=== PATIENT | male | born 1945 | race Caucasian/White ===

== ENCOUNTER 2018-07-14 22:25 | Inpatient (IN) | payer BC, OTHER ==
--- NOTE | 2018-07-14 23:33 | PDOC ---
History of Present Illness - General History Source: Patient Exam Limitations: No Limitations - History of Present Illness Initial Comments: 07/14/18 23:58 The patient is a 72 year old male, with a significant past medical history of hypertension and hypothyroidism, who presents to the emergency department with one month of weakness and fatigue and new onset of blood in his urine with associated suprapubic pain. He states he went to his PCP for a physical about 6 days ago for his fatigue, had blood work and a normal EKG. The patient states he feels he has been urinating more frequently over the past few months, however , states he was passing blood with clots today which was followed by a decrease in urinary output now. He denies experiencing these symptoms in the past. The patient denies chest pain, shortness of breath, headache and dizziness. The patient denies fever, chills, nausea, vomit, diarrhea and constipation. The patient denies dysuria. Allergies: NKDA Surgical Hx: Abdominal lipoma removal PCP - Dr. Megan Rios <Michelle Johnson - Last Filed: 07/14/18 23:58> <Valentine Iglesias - Last Filed: 07/21/18 21:33> - General Chief Complaint: Urinary Problem Stated Complaint: UNABLE TO URINATE,BLEEDING Time Seen by Provider: 07/14/18 23:27 Past History <Michelle Johnson - Last Filed: 07/14/18 23:58> - Past Medical History COPD: No HTN: Yes Thyroid Disease: Yes - Suicide/Smoking/Psychosocial Hx Smoking History: Never smoked <Valentine Iglesias - Last Filed: 07/21/18 21:33> - Past Medical History Allergies/Adverse Reactions: Allergies Allergy/AdvReac Type Severity Reaction Status Date / Time No Known Allergies Allergy Verified 07/14/18 22:29 Home Medications: Ambulatory Orders Levothyroxine [Synthroid -] 125 mg PO DAILY 07/16/18 Losartan-Hctz 100-25 mg Tab 100 mg PO DAILY 07/16/18 Tamsulosin HCl [Flomax -] 0.8 mg PO DAILY@0830 #60 cap.er.24h 07/21/18 Review of Systems - Review of Systems Able to Perform ROS?: Yes Comments:: 07/14/18 23:59 CONSTITUTIONAL: (+) generalized weakness, malaise, Absent: fever, chills, diaphoresis,loss of appetite HEENT: Absent: rhinorrhea, nasal congestion, throat pain, throat swelling, difficulty swallowing, mouth swelling, ear pain, eye pain, visual Changes CARDIOVASCULAR: Absent: chest pain, syncope, palpitations, irregular heart rate, lightheadedness , peripheral edema RESPIRATORY: Absent: cough, shortness of breath, dyspnea with exertion, orthopnea, wheezing, stridor, hemoptysis GASTROINTESTINAL: Absent: abdominal pain, abdominal distension, nausea, vomiting, diarrhea, constipation, melena, hematochezia GENITOURINARY: (+) Suprapubic pain, hematuria, frequency, Absent: dysuria,urgency, hesitancy, flank pain, genital pain MUSCULOSKELETAL: Absent: myalgia, arthralgia, joint swelling SKIN: Absent: rash, itching, pallor HEMATOLOGIC/IMMUNOLOGIC: Absent: easy bruising, lymphadenopathy, frequent infections ENDOCRINE: Absent: unexplained weight gain, unexplained weight loss, heat intolerance, cold intolerance NEUROLOGIC: Absent: headache, focal weakness or paresthesias, dizziness, unsteady gait, seizure, mental status changes, bladder or bowel incontinence PSYCHIATRIC: Absent: anxiety, depression, suicidal or homicidal ideation, hallucinations. <Michelle Johnson - Last Filed: 07/14/18 23:58> *Physical Exam - Vital Signs Last Vital Signs Temp Pulse Resp BP Pulse Ox 97.5 F L 106 H 18 128/71 97 07/14/18 22:27 07/14/18 22:27 07/14/18 22:27 07/14/18 22:27 07/14/18 22:27 - Physical Exam Comments: 07/14/18 23:59 GENERAL: Well developed, well nourished. Awake and alert. No acute distress. HEENT: Normocephalic, atraumatic. PERRLA, EOMI. No conjunctival pallor. Sclera are non- icteric. Moist mucous membranes. Oropharynx is clear. NECK: Supple. Full ROM. No JVD. Carotid pulses 2+ and symmetric, without bruits. No thyromegaly. No lymphadenopathy. CARDIOVASCULAR: Regular rate and rhythm. No murmurs, rubs, or gallops. Distal pulses are 2+ and symmetric. PULMONARY: No evidence of respiratory distress. Lungs clear to auscultation bilaterally. No wheezing, rales or rhonchi. ABDOMINAL: (+) mild suprapubic ttp. [place]z blood in urinal at bedside. Soft. Non-distended. No rebound or guarding. No organomegaly. Normoactive bowel sounds. MUSCULOSKELETAL Normal range of motion at all joints. No bony deformities or tenderness. No CVA tenderness. EXTREMITIES: No cyanosis. No clubbing. No edema. No calf tenderness. SKIN: Warm and dry. Normal capillary refill. No rashes. No jaundice. NEUROLOGICAL: Alert, awake, appropriate. Cranial nerves 2-12 intact. Normoreflexic in the upper and lower extremities. Normal speech. Toes are down-going bilaterally. Gait is normal without ataxia. PSYCHIATRIC: Cooperative. Good eye contact. Appropriate mood and affect. <Michelle Johnson - Last Filed: 07/14/18 23:58> - Vital Signs Last Vital Signs Temp Pulse Resp BP Pulse Ox 97.5 F L 106 H 18 128/71 97 07/14/18 22:27 07/14/18 22:27 07/14/18 22:27 07/14/18 22:27 07/14/18 22:27 <Valentine Iglesias - Last Filed: 07/21/18 21:33> ED Treatment Course - LABORATORY CBC & Chemistry Diagram: 07/21/18 16:00 07/21/18 12:25 <Valentine Iglesias - Last Filed: 07/21/18 21:33> Medical Decision Making - Medical Decision Making 07/15/18 00:03 72 yo male with PMH HTN dev hematuria and suprapubic discomfort today -PSH none( other than lipoma removal) <Valentine Iglesias - Last Filed: 07/21/18 21:33> *DC/Admit/Observation/Transfer - Attestations Scribe Attestion: 07/14/18 23:59 Documentation prepared by Michelle Johnson, acting as medical intern for Valentine Iglesias MD <Michelle Johnson - Last Filed: 07/14/18 23:58> <Valentine Iglesias - Last Filed: 07/21/18 21:33> Diagnosis at time of Disposition: Hematuria Qualifiers: Hematuria type: gross Qualified Code(s): R31.0 - Gross hematuria - Discharge Dispostion Condition at time of disposition: Stable
[2018-07-15 01:00] LABS: BASO % 0.4 % (0-2.0); EOS % 0.6 % (0-4.5); HEMATOCRIT 36.3 % (35.4-49); HEMOGLOBIN 13.1 GM/dL (11.7-16.9); LYMPH % 8.2 % (8-40); MCH 31.9 pg (25.7-33.7); MCHC 36.1 g/dl (32.0-35.9); MEAN CELL VOLUME 88.3 fl (80-96); MEAN PLT VOLUME 8.2 fl (7.5-11.1); MONO % 9.5 % (3.8-10.2); NEUT % 81.3 % (42.8-82.8); PLATELET COUNT 159 K/MM3 (134-434); RDW 12.5 % (11.9-15.9); WHITE BLOOD COUNT 10.6 K/mm3 (4.0-10.0)
[2018-07-15 01:02] LABS: URINE APPEARANCE CLOUDY; URINE BILIRUBIN NEGATIVE (<2.0 mg/dL); URINE GLUCOSE (UA) 1+ (NEGATIVE); URINE KETONE TRACE (NEGATIVE); URINE LEUK ESTERASE NEGATIVE (NEGATIVE); URINE NITRITE NEGATIVE (NEGATIVE); URINE PROTEIN 3+ (NEGATIVE); URINE UROBILINOGEN NEGATIVE mg/dL (0.2-1.0)
[2018-07-15 01:05] LABS: URINE COLOR RED
[2018-07-15 01:24] LABS: ALBUMIN 3.9 g/dl (3.4-5.0); ALK PHOS 51 U/L (45-117); ANION GAP 8 MMOL/L (8-16); BILIRUBIN,TOTAL 0.4 mg/dL (0.2-1); BLOOD UREA NITROGEN 17 mg/dL (7-18); CHLORIDE 102 mmol/L (98-107); CO2 30 mmol/L (21-32); CREATININE 1.3 mg/dL (0.55-1.3); GLUCOSE,RANDOM 122 mg/dL (74-106); POTASSIUM 3.9 mmol/L (3.5-5.1); SGOT/AST 28 U/L (15-37); SGPT/ALT 38 U/L (13-61); SODIUM 140 mmol/L (136-145); TOT PROT 6.8 g/dl (6.4-8.2)
[2018-07-15 02:45] LABS: EPI CELLS RARE /HPF (FEW); URINE BACTERIA FEW /hpf (NONE SEEN)
--- NOTE | 2018-07-15 03:06 | PDOC ---
*Physical Exam - Vital Signs Last Vital Signs Temp Pulse Resp BP Pulse Ox 97.5 F L 106 H 18 128/71 97 07/14/18 22:27 07/14/18 22:27 07/14/18 22:27 07/14/18 22:27 07/14/18 22:27 Heart Score/ECG Review #1 ECG reviewed & interpreted by me at: 04:15 07/15/18 05:07 NSR 83, no std/salena, T wave flat III, normal axis, normal intervals, QTC 465 msec ED Treatment Course - LABORATORY CBC & Chemistry Diagram: 07/15/18 03:35 07/15/18 00:50 - ADDITIONAL ORDERS Additional order review: Laboratory Results 07/15/18 07/15/18 00:55 00:50 Sodium 140 Potassium 3.9 Chloride 102 Carbon Dioxide 30 Anion Gap 8 BUN 17 Creatinine 1.3 Creat Clearance w eGFR 54.57 Random Glucose 122 H Calcium 9.0 Total Bilirubin 0.4 AST 28 ALT 38 Alkaline Phosphatase 51 Total Protein 6.8 Albumin 3.9 Urine Color Red Urine Appearance Cloudy Urine pH 7.0 Ur Specific [place] 1.010 Urine Protein 3+ H Urine Glucose (UA) 1+ H Urine Ketones Trace H Urine Blood 2+ H Urine Nitrite Negative Urine Bilirubin Negative Urine Urobilinogen Negative Ur Leukocyte Esterase Negative Urine WBC (Auto) 4 Urine RBC (Auto) Tnc Ur Epithelial Cells Rare Urine Bacteria Few 07/15/18 00:50 RBC 4.10 MCV 88.3 MCHC 36.1 H RDW 12.5 MPV 8.2 Neutrophils % 81.3 Lymphocytes % 8.2 Monocytes % 9.5 Eosinophils % 0.6 Basophils % 0.4 Medical Decision Making - Medical Decision Making 07/15/18 03:05 Sign-out received from outgoing Emergency Physician Dr. Iglesias Pt interviewed and examined Ancillary studies reviewed Case discussed in detail with oncoming Emergency Physician including history, physical exam and ancillary studies. Ultrasound demonstrates a mobile heterogeneous avascular echogenic focus and bladder possibly an organized hematoma. There is a prevoid volume of 1214 mL and a large postvoid residual of 1059 mL. Visit thickened bladder wall 4 mm which presented a cystitis or hypertrophy. There is also a large prostate. 07/15/18 03:42 CBC, BMP 07/15/18 00:50 Urine Test Results Urine Color Red 07/15/18 00:55 Urine Appearance Cloudy 07/15/18 00:55 Urine pH 7.0 (5.0-8.0) 07/15/18 00:55 Ur Specific [place] 1.010 (1.010-1.035) 07/15/18 00:55 Urine Protein 3+ (NEGATIVE) H 07/15/18 00:55 Urine Glucose (UA) 1+ (NEGATIVE) H 07/15/18 00:55 Urine Ketones Trace (NEGATIVE) H 07/15/18 00:55 Urine Blood 2+ (NEGATIVE) H 07/15/18 00:55 Urine Nitrite Negative (NEGATIVE) 07/15/18 00:55 Urine Bilirubin Negative (<2.0 mg/dL) 07/15/18 00:55 Ur Leukocyte Esterase Negative (NEGATIVE) 07/15/18 00:55 Ur Epithelial Cells Rare /HPF (FEW) 07/15/18 00:55 Urine Bacteria Few /hpf (NONE SEEN) 07/15/18 00:55 Given the blood clots in bladder, and thickened bladder wall thickening, and high post void volume, decision was made to put in a 3 way CBI. Ceftriaxone ordered for presumed cystitis. Urine culture pending. Consult placed in for urologist Dr. Bob. [facility] with [facility], who admited patient to med/surg obs. Case discussed in detail with admitting physician including history, physical exam and ancillary studies. Admitting physician has assumed care for the patient, will follow all pending diagnostics and will complete the evaluation and treatment. *DC/Admit/Observation/Transfer Diagnosis at time of Disposition: Hematuria Qualifiers: Hematuria type: gross Qualified Code(s): R31.0 - Gross hematuria - Discharge Dispostion Condition at time of disposition: Stable Decision to Admit order: Yes - Referrals - Patient Instructions - Post Discharge Activity
[2018-07-15] MEDS ORDERED: CEFTRIAXONE 1,000 MG in DEXTROSE 5%-WATER - 50 ML IVPB ONE (03:18)
[2018-07-15 03:45] LABS: HEMATOCRIT 36.4 % (35.4-49); HEMOGLOBIN 12.9 GM/dL (11.7-16.9); MCH 31.6 pg (25.7-33.7); MCHC 35.5 g/dl (32.0-35.9); MEAN CELL VOLUME 89.1 fl (80-96); MEAN PLT VOLUME 7.7 fl (7.5-11.1); PLATELET COUNT 159 K/MM3 (134-434); RBC 4.09 M/mm3 (4.00-5.60); RDW 12.8 % (11.9-15.9); WHITE BLOOD COUNT 9.5 K/mm3 (4.0-10.0)
[2018-07-15] MEDS ORDERED: CEFTRIAXONE 1 GM/50 ML BAG ONE (04:07)
[2018-07-15] MEDS ORDERED: LIDOCAINE HCL 2% JELLY 10 ML CARTRIDGE ONE (04:47)
--- NOTE | 2018-07-15 04:48 | PN ---
Teaching Attending Note Name of Resident: Abdirahman Lara ATTENDING PHYSICIAN STATEMENT I saw and evaluated the patient. I reviewed the resident's note and discussed the case with the resident. I agree with the resident's findings and plan as documented. SUBJECTIVE: Patient is a 72 year old man with a significant past medical history of hypertension and hypothyroidism, who presents to the ER with one month of weakness and fatigue and new onset of blood in his urine with associated suprapubic pain. He states he went to his PCP for a physical about 6 days ago for his fatigue, had blood work and a normal EKG. The patient states he feels he has been urinating more frequently over the past few months, however, states he was passing blood with clots today which was followed by a decrease in urinary output now. He denies experiencing these symptoms in the past. OBJECTIVE: Alert Vital Signs Period Temp Pulse Resp BP Sys/Ayala Pulse Ox Last 24 Hr 97.5 F 106 18 128/71 97 HEENT: No Jaundice, eye redness or discharge, PERRLA, EOMI. Normocephalic, atraumatic. External ears are normal and hearing is grossly intact. No nasal discharge. Neck: Supple, nontender. No palpable adenopathy or thyromegaly. No JVD Chest: Good effort. Clear to auscultation and percussion. Heart: Regular. No S3, rub or murmur Abdomen: Not distended, soft, nontender and no HSM. No rebound or guarding. Normoactive bowel sounds. Ext: Peripheral pulses intact. No leg edema. Skin: Warm and dry. No petechiae, rash or ecchymosis. Neuro: Alert. Oriented x3. CN 2-12 grossly intact. Sensation grossly intact in all four extremities and DTR are symmetric. Home Medications Medication Instructions Recorded Unobtainable 07/15/18 Abnormal Lab Results 07/15/18 07/15/18 07/15/18 00:50 00:50 00:55 WBC 10.6 H MCHC 36.1 H Absolute Neuts (auto) 8.6 H Random Glucose 122 H Urine Protein 3+ H Urine Glucose (UA) 1+ H Urine Ketones Trace H Urine Blood 2+ H ASSESSMENT AND PLAN: 1. Gross Hematuria and Urinary retention - Will treat with flomax and place a weaver for CBI. Monitor hemoglobin. Has bladder wall thickening. Consult urology for cystoscopy. He does not remember any of his Home medications. Check TFT and contact family for his medications. 2. DVT prophylaxis - SCD, TEDs 3. Advance directives - Full code
--- NOTE | 2018-07-15 05:07 | HP ---
CHIEF COMPLAINT: hematuria and urinary retention PCP: Dr. Rios HISTORY OF PRESENT ILLNESS: 72 yo male with PMH of HTN, Hypothyroidism, and BPH admitted for hematuria and urinary retention. He states that he has had increased urinary frequency over the last few months. He was told by his doctor that his prostate was enlarged and he was started on a medication which he does not know the name, but he states the medication has not been helpful. The hematuria he says started 10:30 am. He also states he was unable to empty his bladder and that he was urinating very small amounts of bloody urine with some clots as often as every 5-10 minutes. He denies any episodes of hematuria in the past. He does endorse some chest congestion a few days ago, for which he took a few pills of a leftover antibiotic he had "for his teeth". He denies any fevers, chills, cough, SOB, chest pain, n/v/d, or dysuria. ER course was notable for: (1) US with mobile heterogeneous avascular focus possible hematoma, thickened bladder wall, enlarged prostate (2) Prevoid residual 1214, postvoid 1059 (3) CBI ordered, urology consulted, Rocephin given Recent Travel: none PAST MEDICAL HISTORY: HTN Hypothyroid BPH PAST SURGICAL HISTORY: Abdominal Lipoma removed Social History: Smoking: denies Alcohol: denies Drugs: Denies Family History: Allergies No Known Allergies Allergy (Verified 07/14/18 22:29) HOME MEDICATIONS: Home Medications Medication Instructions Recorded Unobtainable 07/15/18 REVIEW OF SYSTEMS CONSTITUTIONAL: Absent: fever, chills, diaphoresis, generalized weakness, malaise, loss of appetite, weight change HEENT: Absent: rhinorrhea, nasal congestion, throat pain, throat swelling, difficulty swallowing, mouth swelling, ear pain, eye pain, visual changes CARDIOVASCULAR: Absent: chest pain, syncope, palpitations, irregular heart rate, lightheadedness , peripheral edema RESPIRATORY: Absent: cough, shortness of breath, dyspnea with exertion, orthopnea, wheezing, stridor, hemoptysis GASTROINTESTINAL: Absent: abdominal pain, abdominal distension, nausea, vomiting, diarrhea, constipation, melena, hematochezia GENITOURINARY: frequency, urgency, hematuria with clots Absent: dysuria, hesitancy,, flank pain, genital pain MUSCULOSKELETAL: Absent: myalgia, arthralgia, joint swelling, back pain, neck pain SKIN: Absent: rash, itching, pallor HEMATOLOGIC/IMMUNOLOGIC: Absent: easy bleeding, easy bruising, lymphadenopathy, frequent infections ENDOCRINE: Absent: unexplained weight gain, unexplained weight loss, heat intolerance, cold intolerance NEUROLOGIC: Absent: headache, focal weakness or paresthesias, dizziness, unsteady gait, seizure, mental status changes, bladder or bowel incontinence PSYCHIATRIC: Absent: anxiety, depression, suicidal or homicidal ideation, hallucinations. PHYSICAL EXAMINATION Vital Signs - 24 hr 07/14/18 22:27 Temperature 97.5 F L Pulse Rate 106 H Respiratory 18 Rate Blood Pressure 128/71 O2 Sat by Pulse 97 Oximetry (%) GENERAL: A&O, no acute distress HEAD: Normocephalic, atraumatic. EYES: PERRL, no scleral icterus EARS, NOSE, THROAT: oropharynx clear without exudates. Moist mucous membranes. NECK: supple without lymphadenopathy LUNGS: CTA b/l, no crackles or wheezes HEART: Regular rate and rhythm, normal S1 and S2 without murmur ABDOMEN: obese, abdominal fullness noted with suprapubic pressure stated on abdominal palpation diffusely, normoactive bowel sounds : no penile lesions or discharge, CBI catheter not yet placed MUSCULOSKELETAL: No bony deformities or tenderness. EXTREMITIES: 2+ pulses, warm, well-perfused. No peripheral edema. NEUROLOGICAL: Cranial nerves II-XII grossly intact. Normal speech. PSYCHIATRIC: Cooperative. Good eye contact. Appropriate mood and affect. Laboratory Results - last 24 hr 07/15/18 07/15/18 07/15/18 00:50 00:50 00:55 WBC 10.6 H RBC 4.10 Hgb 13.1 Hct 36.3 MCV 88.3 MCH 31.9 MCHC 36.1 H RDW 12.5 Plt Count 159 MPV 8.2 Absolute Neuts (auto) 8.6 H Neutrophils % 81.3 Lymphocytes % 8.2 Monocytes % 9.5 Eosinophils % 0.6 Basophils % 0.4 Nucleated RBC % 0 Sodium 140 Potassium 3.9 Chloride 102 Carbon Dioxide 30 Anion Gap 8 BUN 17 Creatinine 1.3 Creat Clearance w eGFR 54.57 Random Glucose 122 H Calcium 9.0 Total Bilirubin 0.4 AST 28 ALT 38 Alkaline Phosphatase 51 Total Protein 6.8 Albumin 3.9 Urine Color Red Urine Appearance Cloudy Urine pH 7.0 Ur Specific [place] 1.010 Urine Protein 3+ H Urine Glucose (UA) 1+ H Urine Ketones Trace H Urine Blood 2+ H Urine Nitrite Negative Urine Bilirubin Negative Urine Urobilinogen Negative Ur Leukocyte Esterase Negative Urine WBC (Auto) 4 Urine RBC (Auto) Tnc Ur Epithelial Cells Rare Urine Bacteria Few 07/15/18 03:35 WBC 9.5 RBC 4.09 Hgb 12.9 Hct 36.4 MCV 89.1 MCH 31.6 MCHC 35.5 RDW 12.8 Plt Count 159 MPV 7.7 Absolute Neuts (auto) Neutrophils % Lymphocytes % Monocytes % Eosinophils % Basophils % Nucleated RBC % Sodium Potassium Chloride Carbon Dioxide Anion Gap BUN Creatinine Creat Clearance w eGFR Random Glucose Calcium Total Bilirubin AST ALT Alkaline Phosphatase Total Protein Albumin Urine Color Urine Appearance Urine pH Ur Specific [place] Urine Protein Urine Glucose (UA) Urine Ketones Urine Blood Urine Nitrite Urine Bilirubin Urine Urobilinogen Ur Leukocyte Esterase Urine WBC (Auto) Urine RBC (Auto) Ur Epithelial Cells Urine Bacteria ASSESSMENT/PLAN: 72 yo male with PMH of HTN, Hypothyroidism, and BPH admitted for hematuria and urinary retention Hematuria with Clots and Urinary Retention, Hx BPH -US noted with mobile heterogeneous avascular focus possible hematoma, thickened bladder wall, enlarged prostate -UA 3+ prot, 1+ gluc, trace ketones, 2+blood, 4 WBCs, RBCs too numerous to count -Urology consulted -Rocephin given in ED, will hold further antibiotics for now -CBI catheter to be placed in ED -Further irrigation as needed -Flomax 0.8 mg PO Daily -H/H stable, repeat CBC pending, trend HTN -B.P currently stable -Pt does not know his medication or dose -Verify and restart as needed Hypothyroidism -Pt does not know his medication or dose -Verify and restart -TSH ordered DVT Prophylaxis -Hold as pt with active hematuria FEN -Fluids: none -Electrolytes: No electrolyte abnormalities, BMP in AM -Nutrition: Na controlled diet Disposition Observation Visit type - Emergency Visit Emergency Visit: Yes ED Registration Date: 07/15/18 Care time: The patient presented to the Emergency Department on the above date and was hospitalized for further evaluation of their emergent condition. - New Patient This patient is new to me today: Yes Date on this admission: 07/15/18 - Critical Care Critical Care patient: No
[2018-07-15 06:31] LABS: HEMOGLOBIN 12.2 GM/dL (11.7-16.9); MCH 30.5 pg (25.7-33.7); MCHC 33.9 g/dl (32.0-35.9); MEAN CELL VOLUME 89.9 fl (80-96); MEAN PLT VOLUME 7.8 fl (7.5-11.1); PLATELET COUNT 149 K/MM3 (134-434); RDW 12.3 % (11.9-15.9); WHITE BLOOD COUNT 9.9 K/mm3 (4.0-10.0)
[2018-07-15 06:48] LABS: INR 1.1 (0.83-1.09)
[2018-07-15 07:15] LABS: ALBUMIN 3.6 g/dl (3.4-5.0); ALK PHOS 48 U/L (45-117); ANION GAP 8 MMOL/L (8-16); BILIRUBIN,TOTAL 0.4 mg/dL (0.2-1); BLOOD UREA NITROGEN 16 mg/dL (7-18); CALCIUM 8.6 mg/dL (8.5-10.1); CHLORIDE 103 mmol/L (98-107); CO2 31 mmol/L (21-32); CREATININE 1.4 mg/dL (0.55-1.3); GLUCOSE,RANDOM 131 mg/dL (74-106); MAGNESIUM 2.1 mg/dL (1.8-2.4); POTASSIUM 3.4 mmol/L (3.5-5.1); SGOT/AST 24 U/L (15-37); SGPT/ALT 36 U/L (13-61); SODIUM 141 mmol/L (136-145); TOT PROT 6.5 g/dl (6.4-8.2)
[2018-07-15] MEDS: TAMSULOSIN HCL 0.4 MG CAP PO SCH (08:50)
--- NOTE | 2018-07-15 14:07 | CON.GU ---
Consult Consult Specialty:: Urology Reason for Consultation:: Hematuria urinary retention - Smoking History Smoking history: Never smoked Home Medications - Allergies Allergies/Adverse Reactions: Allergies Allergy/AdvReac Type Severity Reaction Status Date / Time No Known Allergies Allergy Verified 07/14/18 22:29 - Home Medications Home Medications: Ambulatory Orders Unobtainable 07/15/18 Physical Exam- Vital Signs: Vital Signs Temperature 98.2 F 07/15/18 08:51 Pulse Rate 78 07/15/18 08:51 Respiratory Rate 18 07/15/18 08:51 Blood Pressure 128/69 07/15/18 08:51 O2 Sat by Pulse Oximetry (%) 97 07/14/18 22:59 Labs: CBC, BMP 07/15/18 06:20 07/15/18 06:20 Imaging - Results Ultrasound: Report Reviewed Problem List - Problems (1) Urinary retention with incomplete bladder emptying Assessment/Plan: urine blood tinged CBI draining well will need elective cystoscopy May d/c cbi in am if clear Irrigate prn Code(s): R33.9 - RETENTION OF URINE, UNSPECIFIED
--- NOTE | 2018-07-15 15:43 | EKG ---
Test Reason : Blood Pressure : / mmHG Vent. Rate : 083 BPM Atrial Rate : 083 BPM P-R Int : 164 ms QRS Dur : 082 ms QT Int : 396 ms P-R-T Axes : 006 -08 014 degrees QTc Int : 465 ms NORMAL SINUS RHYTHM NORMAL ECG NO PREVIOUS ECGS AVAILABLE Confirmed by AYUSH ROBISON, BELEM ([id number]) on 07/15/2018 3:43:08 PM Referred By: Confirmed By:BELEM PEACOCK MD
[2018-07-15 15:44] VITALS: BMI 31.8
[2018-07-15] MEDS ORDERED: CEFTRIAXONE 1 GM in DEXTROSE 5%-WATER - 50 ML IVPB ONE (19:30)
--- NOTE | 2018-07-15 19:30 | PN ---
Physical Exam: SUBJECTIVE: Patient seen and examined 72 yo male with PMH of HTN, Hypothyroidism , and BPH admitted for hematuria and urinary retention. He states that he has had increased urinary frequency over the last few months. He was told by his doctor that his prostate was enlarged and he was started on a medication which he does not know the name, but he states the medication has not been helpful. The hematuria he says started 10:30 am. He also states he was unable to empty his bladder and that he was urinating very small amounts of bloody urine with some clots as often as every 5-10 minutes. He denies any episodes of hematuria in the past. He does endorse some chest congestion a few days ago, for which he took a few pills of a leftover antibiotic he had "for his teeth". He denies any fevers, chills, cough, SOB, chest pain, n/v/d, or dysuria. OBJECTIVE: Vital Signs Period Temp Pulse Resp BP Sys/Ayala Pulse Ox Last 24 Hr 97.5 F-98.8 F 72-106 18-18 113-128/61-74 97-98 GENERAL: The patient is awake, alert, and fully oriented, in no acute distress. HEAD: Normal with no signs of trauma. EYES: PERRL, extraocular movements intact, sclera anicteric, conjunctiva clear. No ptosis. ENT: Ears normal, nares patent, oropharynx clear without exudates, moist mucous membranes. NECK: Trachea midline, full range of motion, supple. LUNGS: Breath sounds equal, clear to auscultation bilaterally, no wheezes, no crackles, no accessory muscle use. HEART: Regular rate and rhythm, S1, S2 without murmur, rub or gallop. ABDOMEN: Soft, nontender, nondistended, normoactive bowel sounds, no guarding, no rebound, no hepatosplenomegaly, no masses. ; +Weaver draining hematuria into weaver bag. EXTREMITIES: 2+ pulses, warm, well-perfused, no edema. NEUROLOGICAL: Cranial nerves II through XII grossly intact. Normal speech, gait not observed. PSYCH: Normal mood, normal affect. SKIN: Warm, dry, normal turgor, no rashes or lesions noted Laboratory Results - last 24 hr 07/15/18 07/15/18 07/15/18 00:50 00:50 00:55 WBC 10.6 H RBC 4.10 Hgb 13.1 Hct 36.3 MCV 88.3 MCH 31.9 MCHC 36.1 H RDW 12.5 Plt Count 159 MPV 8.2 Absolute Neuts (auto) 8.6 H Neutrophils % 81.3 Lymphocytes % 8.2 Monocytes % 9.5 Eosinophils % 0.6 Basophils % 0.4 Nucleated RBC % 0 PT with INR INR Sodium 140 Potassium 3.9 Chloride 102 Carbon Dioxide 30 Anion Gap 8 BUN 17 Creatinine 1.3 Creat Clearance w eGFR 54.57 Random Glucose 122 H Calcium 9.0 Phosphorus Magnesium Total Bilirubin 0.4 AST 28 ALT 38 Alkaline Phosphatase 51 Total Protein 6.8 Albumin 3.9 TSH Urine Color Red Urine Appearance Cloudy Urine pH 7.0 Ur Specific [place] 1.010 Urine Protein 3+ H Urine Glucose (UA) 1+ H Urine Ketones Trace H Urine Blood 2+ H Urine Nitrite Negative Urine Bilirubin Negative Urine Urobilinogen Negative Ur Leukocyte Esterase Negative Urine WBC (Auto) 4 Urine RBC (Auto) Tnc Ur Epithelial Cells Rare Urine Bacteria Few Blood Type Antibody Screen 07/15/18 07/15/18 07/15/18 03:35 03:35 06:20 WBC 9.5 9.9 RBC 4.09 4.00 Hgb 12.9 12.2 Hct 36.4 36.0 MCV 89.1 89.9 MCH 31.6 30.5 MCHC 35.5 33.9 RDW 12.8 12.3 Plt Count 159 149 MPV 7.7 7.8 Absolute Neuts (auto) Neutrophils % Lymphocytes % Monocytes % Eosinophils % Basophils % Nucleated RBC % PT with INR INR Sodium Potassium Chloride Carbon Dioxide Anion Gap BUN Creatinine Creat Clearance w eGFR Random Glucose Calcium Phosphorus Magnesium Total Bilirubin AST ALT Alkaline Phosphatase Total Protein Albumin TSH Urine Color Urine Appearance Urine pH Ur Specific [place] Urine Protein Urine Glucose (UA) Urine Ketones Urine Blood Urine Nitrite Urine Bilirubin Urine Urobilinogen Ur Leukocyte Esterase Urine WBC (Auto) Urine RBC (Auto) Ur Epithelial Cells Urine Bacteria Blood Type A POSITIVE Antibody Screen Negative 07/15/18 07/15/18 07/15/18 06:20 06:20 06:20 WBC RBC Hgb Hct MCV MCH MCHC RDW Plt Count MPV Absolute Neuts (auto) Neutrophils % Lymphocytes % Monocytes % Eosinophils % Basophils % Nucleated RBC % PT with INR 13.00 INR 1.10 H Sodium 141 Potassium 3.4 L Chloride 103 Carbon Dioxide 31 Anion Gap 8 BUN 16 Creatinine 1.4 H Creat Clearance w eGFR 50.10 Random Glucose 131 H Calcium 8.6 Phosphorus 4.0 Magnesium 2.1 Total Bilirubin 0.4 AST 24 ALT 36 Alkaline Phosphatase 48 Total Protein 6.5 Albumin 3.6 TSH 2.02 Urine Color Urine Appearance Urine pH Ur Specific [place] Urine Protein Urine Glucose (UA) Urine Ketones Urine Blood Urine Nitrite Urine Bilirubin Urine Urobilinogen Ur Leukocyte Esterase Urine WBC (Auto) Urine RBC (Auto) Ur Epithelial Cells Urine Bacteria Blood Type A POSITIVE Antibody Screen Active Medications Generic Name Dose Route Start Last Admin Trade Name Freq PRN Reason Stop Dose Admin Tamsulosin HCl 0.8 mg 07/15/18 08:30 07/15/18 08:50 Flomax - PO 0.8 mg DAILY@0830 [facility] Administration ASSESSMENT/PLAN: 72 year old with a PMH significant for HTN, Hypothyroidism, and BPH admitted for hematuria and urinary retention. Hematuria with Clots and Urinary Retention - History of BPH - Bladder US mobile heterogeneous avascular focus possible hematoma, thickened bladder wall, enlarged prostate - UA 3+ protein, 1+ glucose, trace ketones, 2+ blood, 4 WBCs, RBCs too numerous to count - Rocephin given in ED, will give one more dose, ID consult ordered. - Urology consulted - Recommended elective cystoscopy - December d/c cbi in am if urine clear - Flomax 0.8 mg PO Daily - H/H stable, repeat CBC pending, trend HTN - B.P currently stable - Pt does not know his medication or dose - Verify and restart as needed Hypothyroidism - Pt does not know his medication or dose - TSH WNL 2.02 - Verify and restart DVT Prophylaxis -Hold as pt with active hematuria FEN - PO intake adequate - Electrolytes: No electrolyte abnormalities, BMP in AM -Nutrition: Sodium controlled diet Disposition: Further inpatient monitoring, december d/c when urine is clear. Visit type - Emergency Visit Emergency Visit: No - New Patient This patient is new to me today: Yes Date on this admission: 07/15/18 - Critical Care Critical Care patient: No
[2018-07-15] MEDS ORDERED: cefTRIAXone SODIUM 1 GM VIAL ONE (20:39)
[2018-07-15] MEDS ORDERED: DEXTROSE 5%-WATER - 50 ML IVPB ONE (20:40)
[2018-07-16 06:40] LABS: HEMOGLOBIN 11.9 GM/dL (11.7-16.9); MCH 30.5 pg (25.7-33.7); MEAN CELL VOLUME 89.6 fl (80-96); PLATELET COUNT 131 K/MM3 (134-434); RBC 3.91 M/mm3 (4.00-5.60); RDW 12.6 % (11.9-15.9); WHITE BLOOD COUNT 8.6 K/mm3 (4.0-10.0)
[2018-07-16 07:31] LABS: ANION GAP 8 MMOL/L (8-16); BLOOD UREA NITROGEN 25 mg/dL (7-18); CALCIUM 8.4 mg/dL (8.5-10.1); CHLORIDE 103 mmol/L (98-107); CO2 31 mmol/L (21-32); CREATININE 1.4 mg/dL (0.55-1.3); GLUCOSE,RANDOM 109 mg/dL (74-106); SODIUM 142 mmol/L (136-145)
[2018-07-16] MEDS: TAMSULOSIN HCL 0.4 MG CAP PO SCH (08:52)
--- NOTE | 2018-07-16 12:13 | PN ---
Physical Exam: SUBJECTIVE: Patient seen and examined, still with hematuria. Patient felt like his weaver was not draining and his bladder was still full. He tired adjusting his weaver but still nothing was draining out. OBJECTIVE: Vital Signs Period Temp Pulse Resp BP Sys/Ayala Pulse Ox Last 24 Hr 97.9 F-98.3 F 69-90 18-18 113-126/56-68 98-98 GENERAL: The patient is awake, alert, and fully oriented, in no acute distress. HEAD: Normal with no signs of trauma. EYES: PERRL, extraocular movements intact, sclera anicteric, conjunctiva clear. No ptosis. ENT: Ears normal, nares patent, oropharynx clear without exudates, moist mucous membranes. NECK: Trachea midline, full range of motion, supple. LUNGS: Breath sounds equal, clear to auscultation bilaterally, no wheezes, no crackles, no accessory muscle use. HEART: Regular rate and rhythm, S1, S2 without murmur, rub or gallop. ABDOMEN: Soft, nontender, nondistended, normoactive bowel sounds, no guarding, no rebound, no hepatosplenomegaly, no masses. EXTREMITIES: 2+ pulses, warm, well-perfused, no edema. NEUROLOGICAL: Cranial nerves II through XII grossly intact. Normal speech, gait not observed. PSYCH: Normal mood, normal affect. SKIN: Warm, dry, normal turgor, no rashes or lesions noted Laboratory Results - last 24 hr 07/16/18 07/16/18 05:20 05:20 WBC 8.6 RBC 3.91 L Hgb 11.9 Hct 35.0 L MCV 89.6 MCH 30.5 MCHC 34.0 RDW 12.6 Plt Count 131 L MPV 8.0 Sodium 142 Potassium 4.0 Chloride 103 Carbon Dioxide 31 Anion Gap 8 BUN 25 H Creatinine 1.4 H Creat Clearance w eGFR 50.10 Random Glucose 109 H Calcium 8.4 L Magnesium 2.0 Active Medications Generic Name Dose Route Start Last Admin Trade Name Freq PRN Reason Stop Dose Admin Tamsulosin HCl 0.8 mg 07/15/18 08:30 07/16/18 08:52 Flomax - PO 0.8 mg DAILY@0830 [facility] Administration ASSESSMENT/PLAN: 72 year old with a PMH significant for HTN, Hypothyroidism, and BPH admitted for hematuria and urinary retention. Hematuria with Clots and Urinary Retention - History of BPH - Bladder US mobile heterogeneous avascular focus possible hematoma, thickened bladder wall, enlarged prostate - UA 3+ protein, 1+ glucose, trace ketones, 2+ blood, 4 WBCs, RBCs too numerous to count - Rocephin given in ED, will give one more dose, ID consult ordered. - On continuous bladder irrigation - Urology consulted - Recommended elective cystoscopy - December d/c cbi in am if urine clear - Flomax 0.8 mg PO Daily - H/H stable, repeat CBC pending, trend HTN - BP currently stable, monitor - Hold home Losartan/HCZT and resume upon d/charge Hypothyroidism - Restart synthroid 125 mcg - TSH WNL 2.02 DVT Prophylaxis -Hold as pt with active hematuria FEN - PO intake adequate - Electrolytes: No electrolyte abnormalities, BMP in AM - Nutrition: Sodium controlled diet Disposition: Further inpatient monitoring, december d/c when urine is clear. Visit type - Emergency Visit Emergency Visit: No - New Patient This patient is new to me today: No - Critical Care Critical Care patient: No
[2018-07-16] MEDS ORDERED: LEVOTHYROXINE NA 125 MCG TABLET (FP) PO SCH (12:15)
--- NOTE | 2018-07-16 14:40 | CON.ID ---
Consult Consult Specialty:: infectious diseases Referred by:: Reason for Consultation:: hematuria,uti - History of Present Illness Chief Complaint: urinary retention,hematuria History of Present Illness: 72 yo male with PMH of HTN, Hypothyroidism, and BPH admitted for hematuria and urinary retention. He states that he has had increased urinary frequency over the last few months. patient was started on meds for BPH which did not help him . The hematuria he says started 10:30 am. He also states he was unable to empty his bladder and that he was urinating very small amounts of bloody urine with some clots as often as every 5-10 minutes. now comes to the hospital with hematuria urology has seen the patient and patient has been started on CBI patient still very uncomfortable currently on ceftriaxone - History Source History Provided By: Patient, Medical Record Limitations to Obtaining History: No Limitations - Alcohol/Substance Use Hx Alcohol Use: No - Smoking History Smoking history: Never smoked Have you smoked in the past 12 months: No Home Medications - Allergies Allergies/Adverse Reactions: Allergies Allergy/AdvReac Type Severity Reaction Status Date / Time No Known Allergies Allergy Verified 07/14/18 22:29 - Home Medications Home Medications: Ambulatory Orders Levothyroxine [Synthroid -] 125 mg PO DAILY 07/16/18 Losartan-Hctz 100-25 mg Tab 100 mg PO DAILY 07/16/18 Review of Systems - Review of Systems Constitutional: reports: No Symptoms Eyes: reports: No Symptoms HENT: reports: No Symptoms Neck: reports: No Symptoms Cardiovascular: reports: No Symptoms Respiratory: reports: No Symptoms Gastrointestinal: reports: No Symptoms Genitourinary: reports: Hematuria, Incontinence Musculoskeletal: reports: No Symptoms Integumentary: reports: No Symptoms Neurological: reports: No Symptoms Endocrine: reports: No Symptoms Hematology/Lymphatic: reports: No Symptoms Psychiatric: reports: No Symptoms Physical Exam Vital Signs: Vital Signs Temperature 97.6 F 07/16/18 14:12 Pulse Rate 99 H 07/16/18 14:12 Respiratory Rate 18 07/16/18 14:12 Blood Pressure 127/77 07/16/18 14:12 O2 Sat by Pulse Oximetry (%) 98 07/16/18 05:08 Constitutional: Yes: Well Nourished, No Distress, Calm Eyes: Yes: Conjunctiva Clear, EOM Intact HENT: Yes: Atraumatic, Normocephalic Neck: Yes: Supple, Trachea Midline Cardiovascular: Yes: Regular Rate and Rhythm Respiratory: Yes: Regular, CTA Bilaterally Gastrointestinal: Yes: Normal Bowel Sounds, Soft Renal/: Yes: Reese Present, Hematuria Musculoskeletal: Yes: WNL Extremities: Yes: WNL Neurological: Yes: Alert, Oriented Psychiatric: Yes: Alert, Oriented Labs: CBC, BMP 07/16/18 05:20 07/16/18 05:20 Imaging - Results Chest X-ray: Report Reviewed, Image Reviewed Ultrasound: Report Reviewed, Image Reviewed Assessment/Plan patient coming in with urinary retention and hematuria htn hypothyroidism urinary retention hematuria r/o uti patient currently on ceftriaxone plan will continue current abx await for cx report continue cbi monitor for hematuria rest as per the team
[2018-07-16] MEDS: LEVOTHYROXINE NA 125 MCG TABLET (FP) PO SCH (15:18)
[2018-07-17] MEDS: ACETAMINOPHEN 500 MG TABLET (FP) PO PRN (02:35)
[2018-07-17] MEDS: LEVOTHYROXINE NA 125 MCG TABLET (FP) PO SCH (06:25)
[2018-07-17 07:42] LABS: ANION GAP 8 MMOL/L (8-16); BLOOD UREA NITROGEN 28 mg/dL (7-18); CALCIUM 8.4 mg/dL (8.5-10.1); CHLORIDE 105 mmol/L (98-107); CO2 29 mmol/L (21-32); CREATININE 2.4 mg/dL (0.55-1.3); GLUCOSE,RANDOM 128 mg/dL (74-106); MAGNESIUM 2.1 mg/dL (1.8-2.4); POTASSIUM 3.8 mmol/L (3.5-5.1); SODIUM 141 mmol/L (136-145)
[2018-07-17 08:15] LABS: HEMATOCRIT 34.9 % (35.4-49); HEMOGLOBIN 11.9 GM/dL (11.7-16.9); MCH 30.7 pg (25.7-33.7); MCHC 34.1 g/dl (32.0-35.9); MEAN CELL VOLUME 90.2 fl (80-96); MEAN PLT VOLUME 7.9 fl (7.5-11.1); PLATELET COUNT 148 K/MM3 (134-434); RBC 3.87 M/mm3 (4.00-5.60); RDW 12.6 % (11.9-15.9); WHITE BLOOD COUNT 9.5 K/mm3 (4.0-10.0)
[2018-07-17] MEDS: TAMSULOSIN HCL 0.4 MG CAP PO SCH (08:17)
--- NOTE | 2018-07-17 08:35 | PN ---
Physical Exam: SUBJECTIVE: Patient seen and examined. Urine running clear. Pt c/o new area of harness and tenderness on his abdomen to the right of his belly button. He reports having a bowel movement yesterday. OBJECTIVE: Vital Signs Period Temp Pulse Resp BP Sys/Ayala Pulse Ox Last 24 Hr 97.6 F-99.2 F 86-99 18-20 117-150/66-87 98-98 GENERAL: The patient is awake, alert, and fully oriented, in no acute distress. HEAD: Normal with no signs of trauma. EYES: PERRL, extraocular movements intact, sclera anicteric, conjunctiva clear. No ptosis. ENT: Ears normal, nares patent, oropharynx clear without exudates, moist mucous membranes. NECK: Trachea midline, full range of motion, supple. LUNGS: Breath sounds equal, clear to auscultation bilaterally, no wheezes, no crackles, no accessory muscle use. HEART: Regular rate and rhythm, S1, S2 without murmur, rub or gallop. ABDOMEN: Round smooth area TTP to right of umbilicus, nondistended, normoactive bowel sounds, no guarding, no rebound, no hepatosplenomegaly, no masses. : +Reese draining clear urine EXTREMITIES: Hyper pigmentation to anterior shins b/l 2+ pulses, warm, well- perfused, no edema. NEUROLOGICAL: Cranial nerves II through XII grossly intact. Normal speech, gait not observed. PSYCH: Normal mood, normal affect. SKIN: Warm, dry, normal turgor, no rashes or lesions noted Laboratory Results - last 24 hr 07/17/18 07/17/18 06:30 06:30 WBC 9.5 RBC 3.87 L Hgb 11.9 Hct 34.9 L MCV 90.2 MCH 30.7 MCHC 34.1 RDW 12.6 Plt Count 148 MPV 7.9 Sodium 141 Potassium 3.8 Chloride 105 Carbon Dioxide 29 Anion Gap 8 BUN 28 H Creatinine 2.4 H Creat Clearance w eGFR 26.90 Random Glucose 128 H Calcium 8.4 L Magnesium 2.1 Active Medications Generic Name Dose Route Start Last Admin Trade Name Freq PRN Reason Stop Dose Admin Acetaminophen 500 mg 07/17/18 01:32 07/17/18 02:35 Tylenol - PO 500 mg Q6H PRN Administration PAIN Levothyroxine Sodium 125 mcg 07/16/18 12:38 07/17/18 06:25 Synthroid - PO 125 mcg DAILY@0700 [facility] Administration Tamsulosin HCl 0.8 mg 07/15/18 08:30 07/17/18 08:17 Flomax - PO 0.8 mg DAILY@0830 [facility] Administration ASSESSMENT/PLAN: 72 year old with a PMH significant for HTN, Hypothyroidism, and BPH admitted for hematuria and urinary retention. Hematuria with Clots and Urinary Retention - History of BPH - Bladder US mobile heterogeneous avascular focus possible hematoma, thickened bladder wall, enlarged prostate - UA 3+ protein, 1+ glucose, trace ketones, 2+ blood, 4 WBCs, RBCs too numerous to count - Rocephin given in ED, will give one more dose, ID consulted - Urine clear today, CBI d/cy - Urology consulted - Recommended elective cystoscopy - Flomax 0.8 mg PO Daily - H/H stable, repeat CBC pending, trend HTN - BP elevated this AM - Restart home Losartan/HCZT and resume upon d/charge Hypothyroidism - Synthroid 125 mcg - TSH WNL 2.02 DVT Prophylaxis -Hold as pt with active hematuria FEN - PO intake adequate - Electrolytes: No electrolyte abnormalities, BMP in AM - Nutrition: Sodium controlled diet Disposition: Will consult with urology if patient can be d/cy to home now that urine is clear. Visit type - Emergency Visit Emergency Visit: No - New Patient This patient is new to me today: No - Critical Care Critical Care patient: No
--- NOTE | 2018-07-17 09:44 | PN ---
Progress Note, Physician History of Present Illness: still very uncomfortable urine has cleared up - Current Medication List Current Medications: Active Medications Acetaminophen (Tylenol -) 500 mg PO Q6H PRN PRN Reason: PAIN Last Admin: 07/17/18 02:35 Dose: 500 mg HCTZ/Losartan Potassium (Hyzaar -) 2 tab PO DAILY [facility] Levothyroxine Sodium (Synthroid -) 125 mcg PO DAILY@0700 [facility] Last Admin: 07/17/18 06:25 Dose: 125 mcg Tamsulosin HCl (Flomax -) 0.8 mg PO DAILY@0830 [facility] Last Admin: 07/17/18 08:17 Dose: 0.8 mg - Objective Vital Signs: Vital Signs Temperature 98.7 F 07/17/18 08:23 Pulse Rate 88 07/17/18 08:23 Respiratory Rate 18 07/17/18 08:23 Blood Pressure 150/87 07/17/18 08:23 O2 Sat by Pulse Oximetry (%) 98 07/17/18 06:00 Constitutional: Yes: Calm, Mild Distress Cardiovascular: Yes: Regular Rate and Rhythm Respiratory: Yes: Regular, CTA Bilaterally Gastrointestinal: Yes: Normal Bowel Sounds, Soft Genitourinary: Yes: Reese Present, Other (cbi) Musculoskeletal: Yes: WNL Extremities: Yes: WNL Neurological: Yes: Alert, Oriented Psychiatric: Yes: Alert, Oriented Labs: CBC, BMP 07/17/18 06:30 07/17/18 06:30 INR, PTT INR 1.10 (0.83-1.09) H 07/15/18 06:20 Assessment/Plan patient coming in with urinary retention and hematuria htn hypothyroidism urinary retention hematuria r/o uti cx report noted plan can d/c ceftriaxone rest continue current mgmt
[2018-07-17] MEDS: LOSARTAN 50MG/HCTZ 12.5MG 1 TAB (FP) PO SCH (12:34)
[2018-07-18] MEDS: LEVOTHYROXINE NA 125 MCG TABLET (FP) PO SCH (06:03)
[2018-07-18 07:30] LABS: HEMATOCRIT 33.7 % (35.4-49); HEMOGLOBIN 11.5 GM/dL (11.7-16.9); MCH 30.7 pg (25.7-33.7); MCHC 34.1 g/dl (32.0-35.9); MEAN PLT VOLUME 7.8 fl (7.5-11.1); PLATELET COUNT 140 K/MM3 (134-434); RBC 3.74 M/mm3 (4.00-5.60); RDW 12.5 % (11.9-15.9); WHITE BLOOD COUNT 10.5 K/mm3 (4.0-10.0)
[2018-07-18 07:51] LABS: ANION GAP 7 MMOL/L (8-16); BLOOD UREA NITROGEN 48 mg/dL (7-18); CALCIUM 8.5 mg/dL (8.5-10.1); CHLORIDE 102 mmol/L (98-107); CO2 29 mmol/L (21-32); CREATININE 6.1 mg/dL (0.55-1.3); GLUCOSE,RANDOM 133 mg/dL (74-106); MAGNESIUM 2.2 mg/dL (1.8-2.4); POTASSIUM 4.2 mmol/L (3.5-5.1); SODIUM 139 mmol/L (136-145)
[2018-07-18] MEDS: TAMSULOSIN HCL 0.4 MG CAP PO SCH (08:59)
[2018-07-18 11:30] LABS: HEMATOCRIT 34.3 % (35.4-49); HEMOGLOBIN 11.4 GM/dL (11.7-16.9); MCH 30.1 pg (25.7-33.7); MCHC 33.2 g/dl (32.0-35.9); MEAN CELL VOLUME 90.8 fl (80-96); MEAN PLT VOLUME 7.8 fl (7.5-11.1); PLATELET COUNT 134 K/MM3 (134-434); RBC 3.77 M/mm3 (4.00-5.60); RDW 12.9 % (11.9-15.9)
[2018-07-18] MEDS ORDERED: PT OWN MED DRAWER 7, Y5N ONE (11:30)
[2018-07-18 11:33] LABS: ANION GAP 10 MMOL/L (8-16); BLOOD UREA NITROGEN 52 mg/dL (7-18); CALCIUM 8.4 mg/dL (8.5-10.1); CHLORIDE 102 mmol/L (98-107); CO2 26 mmol/L (21-32); CREATININE 6.8 mg/dL (0.55-1.3); GLUCOSE,RANDOM 209 mg/dL (74-106); POTASSIUM 3.7 mmol/L (3.5-5.1); SODIUM 139 mmol/L (136-145)
[2018-07-18] MEDS: LOSARTAN 50MG/HCTZ 12.5MG 1 TAB (FP) PO SCH (12:01)
--- NOTE | 2018-07-18 14:13 | PN ---
Progress Note, Physician History of Present Illness: Pt seen and examined. Events noted. Pt on CBI with clearance of hematuria. Remains afebrile, without specific complaints at this time. - Current Medication List Current Medications: Active Medications Acetaminophen (Tylenol -) 500 mg PO Q6H PRN PRN Reason: PAIN Last Admin: 07/17/18 02:35 Dose: 500 mg Levothyroxine Sodium (Synthroid -) 125 mcg PO DAILY@0700 [facility] Last Admin: 07/18/18 06:03 Dose: 125 mcg Tamsulosin HCl (Flomax -) 0.8 mg PO DAILY@0830 [facility] Last Admin: 07/18/18 08:59 Dose: 0.8 mg - Objective Vital Signs: Vital Signs Temperature 98.7 F 07/18/18 05:22 Pulse Rate 87 07/18/18 05:22 Respiratory Rate 20 07/18/18 06:00 Blood Pressure 135/87 07/18/18 05:22 O2 Sat by Pulse Oximetry (%) 98 07/18/18 06:00 Constitutional: Yes: No Distress, Calm Cardiovascular: Yes: Regular Rate and Rhythm Respiratory: Yes: Regular Gastrointestinal: Yes: Normal Bowel Sounds, Soft, Abdomen, Obese Genitourinary: Yes: Reese Present, Other (CBI - no hematuria) Extremities: Yes: WNL Integumentary: Yes: WNL Neurological: Yes: Alert, Oriented Labs: CBC, BMP 07/18/18 10:30 07/18/18 10:30 INR, PTT INR 1.10 (0.83-1.09) H 07/15/18 06:20 Microbiology 07/15/18 00:55 Urine - Urine Reese Urine Culture - Final NO GROWTH OBTAINED Problem List - Problems (1) Hematuria Code(s): R31.9 - HEMATURIA, UNSPECIFIED Qualifiers: Hematuria type: gross Qualified Code(s): R31.0 - Gross hematuria (2) Urinary retention with incomplete bladder emptying Code(s): R33.9 - RETENTION OF URINE, UNSPECIFIED Assessment/Plan Hematuria BPH Urinary retention HTN Hypothyroidism -- Urine culture: no growth -- antibiotics discontinued -- following continue monitor
--- NOTE | 2018-07-18 15:18 | CONSULT ---
Consult - text type - Consultation Consultation Note: 3 way weaver not draining bladder D/c ed and [address] 900 cc obtained irrigated w 2 l multiple smaller clotts and dark blood obtained draining well
[2018-07-18 19:38] LABS: ANION GAP 13 MMOL/L (8-16); BLOOD UREA NITROGEN 48 mg/dL (7-18); CALCIUM 8.3 mg/dL (8.5-10.1); CHLORIDE 103 mmol/L (98-107); CO2 26 mmol/L (21-32); CREATININE 4.9 mg/dL (0.55-1.3); GLUCOSE,RANDOM 165 mg/dL (74-106); POTASSIUM 3.7 mmol/L (3.5-5.1); SODIUM 142 mmol/L (136-145)
--- NOTE | 2018-07-18 19:38 | PN ---
Physical Exam: SUBJECTIVE: Patient seen and examined. Increasing pressure to bladder. Still with hematuria after irrigation. Seen by urologist Dr. Bob. OBJECTIVE: Vital Signs Period Temp Pulse Resp BP Sys/Aayla Pulse Ox Last 24 Hr 98 F-99.2 F 76-97 20-20 122-156/67-87 98-98 GENERAL: The patient is awake, alert, and fully oriented, in no acute distress. HEAD: Normal with no signs of trauma. EYES: PERRL, extraocular movements intact, sclera anicteric, conjunctiva clear. No ptosis. ENT: Ears normal, nares patent, oropharynx clear without exudates, moist mucous membranes. NECK: Trachea midline, full range of motion, supple. LUNGS: Breath sounds equal, clear to auscultation bilaterally, no wheezes, no crackles, no accessory muscle use. HEART: Regular rate and rhythm, S1, S2 without murmur, rub or gallop. ABDOMEN: Round smooth area TTP to right of umbilicus, distended, normoactive bowel sounds, no guarding, no rebound, no hepatosplenomegaly, no masses. : +Reese hematuria EXTREMITIES: Hyper pigmentation to anterior shins b/l 2+ pulses, warm, well- perfused, no edema. NEUROLOGICAL: Cranial nerves II through XII grossly intact. Normal speech, gait not observed. PSYCH: Normal mood, normal affect. SKIN: Warm, dry, normal turgor, no rashes or lesions noted Laboratory Results - last 24 hr 07/18/18 07/18/18 07/18/18 06:45 06:45 10:30 WBC 10.5 H RBC 3.74 L Hgb 11.5 L Hct 33.7 L MCV 90.0 MCH 30.7 MCHC 34.1 RDW 12.5 Plt Count 140 MPV 7.8 Sodium 139 139 Potassium 4.2 3.7 Chloride 102 102 Carbon Dioxide 29 26 Anion Gap 7 L 10 BUN 48 H 52 H Creatinine 6.1 H 6.8 H Creat Clearance w eGFR 9.17 8.09 Random Glucose 133 H 209 H Calcium 8.5 8.4 L Magnesium 2.2 07/18/18 10:30 WBC 10.0 RBC 3.77 L Hgb 11.4 L Hct 34.3 L MCV 90.8 MCH 30.1 MCHC 33.2 RDW 12.9 Plt Count 134 MPV 7.8 Sodium Potassium Chloride Carbon Dioxide Anion Gap BUN Creatinine Creat Clearance w eGFR Random Glucose Calcium Magnesium Active Medications Generic Name Dose Route Start Last Admin Trade Name Garret PRN Reason Stop Dose Admin Acetaminophen 500 mg 07/17/18 01:32 07/17/18 02:35 Tylenol - PO 500 mg Q6H PRN Administration PAIN Levothyroxine Sodium 125 mcg 07/16/18 12:38 07/18/18 06:03 Synthroid - PO 125 mcg DAILY@0700 [facility] Administration Tamsulosin HCl 0.8 mg 07/15/18 08:30 07/18/18 08:59 Flomax - PO 0.8 mg DAILY@0830 [facility] Administration ASSESSMENT/PLAN: 72 year old with a PMH significant for HTN, Hypothyroidism, and BPH admitted for hematuria and urinary retention. Hematuria with Clots and Urinary Retention - History of BPH - Bladder US mobile heterogeneous avascular focus possible hematoma, thickened bladder wall, enlarged prostate - UA 3+ protein, 1+ glucose, trace ketones, 2+ blood, 4 WBCs, RBCs too numerous to count -3 way Reese not draining. - Bladder US today showed blood clots, but no hydronephrosis - Seen by urologist Dr. Bob - D/cy 3 way and placed [address] - 900 cc output - Irrigated and multiple smaller clotts and blood output - Now draining well - Cystoscopy for Friday - ID d/cy Ceftriaxone - Flomax 0.8 mg PO Daily - H/H stable, repeat CBC pending, trend Azotemia - BUN/Cr 48/6.1 -> 52/6.8 today - repeat BMP ordered HTN - Continue Losartan/HCZT and resume upon discharge Hypothyroidism - Synthroid 125 mcg - TSH WNL 2.02 DVT Prophylaxis -Hold as pt with active hematuria FEN - PO intake adequate - Electrolytes: No electrolyte abnormalities, BMP in AM - Nutrition: Sodium controlled diet Disposition: Will consult with urology if patient can be d/cy to home now that urine is clear. Visit type - Emergency Visit Emergency Visit: No - New Patient This patient is new to me today: No - Critical Care Critical Care patient: No
[2018-07-18 23:15] LABS: ANION GAP 5 MMOL/L (8-16); BLOOD UREA NITROGEN 44 mg/dL (7-18); CALCIUM 8.1 mg/dL (8.5-10.1); CHLORIDE 105 mmol/L (98-107); CO2 31 mmol/L (21-32); CREATININE 3.6 mg/dL (0.55-1.3); GLUCOSE,RANDOM 143 mg/dL (74-106); POTASSIUM 3.7 mmol/L (3.5-5.1); SODIUM 141 mmol/L (136-145)
[2018-07-19] MEDS: ACETAMINOPHEN 500 MG TABLET (FP) PO PRN (01:04)
[2018-07-19] MEDS: LEVOTHYROXINE NA 125 MCG TABLET (FP) PO SCH (06:11)
[2018-07-19 07:42] LABS: HEMATOCRIT 30.6 % (35.4-49); MCH 32.1 pg (25.7-33.7); MEAN CELL VOLUME 89.4 fl (80-96); MEAN PLT VOLUME 8.1 fl (7.5-11.1); PLATELET COUNT 129 K/MM3 (134-434); RBC 3.42 M/mm3 (4.00-5.60); WHITE BLOOD COUNT 9.2 K/mm3 (4.0-10.0)
[2018-07-19] MEDS: TAMSULOSIN HCL 0.4 MG CAP PO SCH (08:20)
--- NOTE | 2018-07-19 08:54 | CONSULT ---
Consult - text type - Consultation Consultation Note: Renal Consult for FRANKLIN This is a 72 year old gentleman with hx of BPH, Hypertension, Hypothyrodism who presented with hematuria and found to have blood clots in bladder requiring CBI with development of FRANKLIN from bladder outlet obstruction despite CBI. Pt reports noting hematuria that started last Friday. Reports foul smelling urine for several months prior. Denies any flank pain. Was on CBI up until yesterday but was stopped when pt developed abd pain and Bladder scan showed volume > 1000cc. Now off CBI and feels better. Making urine via Weaver, has hematuira still. No sob, cp, abd pain, N/V/D. No fever or chills. PMHx: as above Allergies: NKDA Family Hx: NC Social Hx: No T/A/D ROS: as per HPI Home Medications Medication Instructions Recorded Levothyroxine [Synthroid -] 125 mg PO DAILY 07/16/18 Losartan-Hctz 100-25 mg Tab 100 mg PO DAILY 07/16/18 Vital Signs Temperature 98.8 F 07/19/18 05:56 Pulse Rate 85 07/19/18 05:56 Respiratory Rate 20 07/19/18 05:56 Blood Pressure 139/66 07/19/18 05:56 O2 Sat by Pulse Oximetry (%) 98 07/18/18 21:00 NAD awake and alert neck supple MMM, No JVD RRR, No M/R CTA soft NT/ND weaver in place no LE edema, cyanosis or clubbing Intake & Output 07/16/18 07/17/18 07/18/18 07/19/18 23:59 23:59 23:59 23:59 Intake Total 13839 06360 8700 100 Output Total 39249 88734 46620 1100 Balance 1100 -8110 -4500 -1000 CBC, BMP 07/19/18 06:30 07/18/18 22:50 Laboratory Tests 07/15/18 07/16/18 07/17/18 00:50 05:20 06:30 Creatinine 1.3 1.4 H 2.4 H Calcium 07/18/18 07/18/18 10:30 22:50 Creatininmae 6.8 H 3.6 H Calcium 8.1 L Laboratory Tests 07/15/18 00:55 Urine Protein 3+ H Urine WBC (Auto) 4 Urine RBC (Auto) Tnc Current Medications Acetaminophen (Tylenol -) 500 mg PO Q6H PRN PRN Reason: PAIN Last Admin: 07/19/18 01:04 Dose: 500 mg Levothyroxine Sodium (Synthroid -) 125 mcg PO DAILY@0700 [facility] Last Admin: 07/19/18 06:11 Dose: 125 mcg Tamsulosin HCl (Flomax -) 0.8 mg PO DAILY@0830 [facility] Last Admin: 07/19/18 08:20 Dose: 0.8 mg 72 year old gentleman with hx of BPH, Hypertension, Hypothyrodism who presented with hematuria and found to have blood clots in bladder requiring CBI with development of FRANKLIN from bladder outlet obstruction despite CBI. #FRANKLIN secondary to badder outlet obstruction despite CBI in setting of hematuria +/- LANDON/diuretic induced renal hypoprofusion #Hematuria with bladder clotts #Hypertension #Anemia Renal function with gradual improvement off CBI would maintain Weaver for now still IVF at moderate rate to ensure production of urine so that it will be less of a chance that the blood in the bladder will coagulate and cause obstructing clots will require cysto to determine etiology of hematuira once renal function improves to baseline can consider CT of Abd/Pelvis with Contrast to r/o pathology Trend H/H, no indication for transfusion off aRB/diuretic for now, if BP is high can add CCB for better control Thank you Henri Medina DO
[2018-07-19 10:01] LABS: ANION GAP 8 MMOL/L (8-16); BLOOD UREA NITROGEN 36 mg/dL (7-18); CALCIUM 8.3 mg/dL (8.5-10.1); CHLORIDE 104 mmol/L (98-107); CO2 30 mmol/L (21-32); CREATININE 2.3 mg/dL (0.55-1.3); GLUCOSE,RANDOM 119 mg/dL (74-106); POTASSIUM 4.3 mmol/L (3.5-5.1); SODIUM 142 mmol/L (136-145)
--- NOTE | 2018-07-19 10:46 | PN ---
Physical Exam: SUBJECTIVE: Patient seen and examined. 3-way weaver changed to 2-way yesterday by Dr. Calvo. Today draining red urine. Reports abdominal distention/ discomfort have improved. OBJECTIVE: Vital Signs Period Temp Pulse Resp BP Sys/Ayala Pulse Ox Last 24 Hr 98.2 F-100.6 F 71-97 20-20 100-139/50-73 98-98 GENERAL: The patient is awake, alert, and fully oriented, in no acute distress. HEAD: Normal with no signs of trauma. EYES: PERRL, extraocular movements intact, sclera anicteric, conjunctiva clear. No ptosis. ENT: Ears normal, nares patent, oropharynx clear without exudates, moist mucous membranes. NECK: Trachea midline, full range of motion, supple. LUNGS: Breath sounds equal, clear to auscultation bilaterally, no wheezes, no crackles, no accessory muscle use. HEART: Regular rate and rhythm, S1, S2 without murmur, rub or gallop. ABDOMEN: Soft, normoactive bowel sounds, no guarding, no rebound, no hepatosplenomegaly, no masses. : +Weaver hematuria EXTREMITIES: Hyper pigmentation to anterior shins b/l 2+ pulses, warm, well- perfused, no edema. NEUROLOGICAL: No facial droop, tongue mid line. Normal speech, gait not observed. PSYCH: Normal mood, normal affect. SKIN: Warm, dry, normal turgor, no rashes or lesions noted Laboratory Results - last 24 hr 07/18/18 07/18/18 07/18/18 10:30 10:30 18:00 WBC 10.0 RBC 3.77 L Hgb 11.4 L Hct 34.3 L MCV 90.8 MCH 30.1 MCHC 33.2 RDW 12.9 Plt Count 134 MPV 7.8 Sodium 139 142 Potassium 3.7 3.7 Chloride 102 103 Carbon Dioxide 26 26 Anion Gap 10 13 BUN 52 H 48 H Creatinine 6.8 H 4.9 H Creat Clearance w eGFR 8.09 11.80 Random Glucose 209 H 165 H Calcium 8.4 L 8.3 L 07/18/18 07/19/18 07/19/18 22:50 06:30 09:13 WBC 9.2 RBC 3.42 L Hgb 11.0 L Hct 30.6 L MCV 89.4 MCH 32.1 MCHC 36.0 H RDW 13.0 Plt Count 129 L MPV 8.1 Sodium 141 142 Potassium 3.7 4.3 Chloride 105 104 Carbon Dioxide 31 30 Anion Gap 5 L 8 BUN 44 H 36 H Creatinine 3.6 H 2.3 H Creat Clearance w eGFR 16.85 28.25 Random Glucose 143 H 119 H Calcium 8.1 L 8.3 L Active Medications Generic Name Dose Route Start Last Admin Trade Name Freq PRN Reason Stop Dose Admin Acetaminophen 500 mg 07/17/18 01:32 07/19/18 01:04 Tylenol - PO 500 mg Q6H PRN Administration PAIN Levothyroxine Sodium 125 mcg 07/16/18 12:38 07/19/18 06:11 Synthroid - PO 125 mcg DAILY@0700 [facility] Administration Tamsulosin HCl 0.8 mg 07/15/18 08:30 07/19/18 08:20 Flomax - PO 0.8 mg DAILY@0830 [facility] Administration ASSESSMENT/PLAN: 72 year old with a PMH significant for HTN, Hypothyroidism, and BPH admitted for hematuria and urinary retention. Hematuria with Clots and Urinary Retention - History of BPH - Bladder US mobile heterogeneous avascular focus possible hematoma, thickened bladder wall, enlarged prostate - UA 3+ protein, 1+ glucose, trace ketones, 2+ blood, 4 WBCs, RBCs too numerous to count -3 way Weaver not draining. - Bladder US today showed blood clots, but no hydronephrosis - Seen by urologist Dr. Bob - D/cy 3 way and placed [address] - 900 cc output - Irrigated and multiple smaller clotts and blood output - Now draining well - Cystoscopy for Friday - ID d/cy Ceftriaxone - Flomax 0.8 mg PO Daily - H/H stable, repeat CBC pending, trend FRANKLIN - Secondary to bladder outlet obstruction despite CBI in setting of hematuria - Improving - BUN/Cr 48/6.1 -> 52/6.8 -> 36/2.3 today - Seen by inspector filter tip Dr. Adam Álvarez - Monitor BMP HTN - Continue Losartan/HCZT and resume upon discharge Hypothyroidism - Synthroid 125 mcg - TSH WNL 2.02 DVT Prophylaxis -Hold as pt with active hematuria FEN - PO intake adequate - Electrolytes: No electrolyte abnormalities, BMP in AM - Nutrition: Sodium controlled diet Disposition: Patient requires further inpatient care until yamilka can have cystoscopy. Visit type - Emergency Visit Emergency Visit: No - New Patient This patient is new to me today: No - Critical Care Critical Care patient: No
[2018-07-19] MEDS: SODIUM CHLORIDE 0.45%/POT 20 MEQ/1,000 ML INFUS.BAG IV SCH (11:51)
--- NOTE | 2018-07-19 12:22 | PN ---
Progress Note, Physician History of Present Illness: patient stable doing better cbi stopped - Current Medication List Current Medications: Active Medications Acetaminophen (Tylenol -) 500 mg PO Q6H PRN PRN Reason: PAIN Last Admin: 07/19/18 01:04 Dose: 500 mg Potassium Chloride/Sodium Chloride (1/2ns+20meq Kcl) 20 meq in 1,000 mls @ 75 mls/hr IV ASDIR [facility] Last Admin: 07/19/18 11:51 Dose: 75 mls/hr Levothyroxine Sodium (Synthroid -) 125 mcg PO DAILY@0700 [facility] Last Admin: 07/19/18 06:11 Dose: 125 mcg Tamsulosin HCl (Flomax -) 0.8 mg PO DAILY@0830 [facility] Last Admin: 07/19/18 08:20 Dose: 0.8 mg - Objective Vital Signs: Vital Signs Temperature 98.9 F 07/19/18 10:00 Pulse Rate 71 07/19/18 10:00 Respiratory Rate 20 07/19/18 10:00 Blood Pressure 106/63 07/19/18 10:00 O2 Sat by Pulse Oximetry (%) 98 07/19/18 09:00 Constitutional: Yes: No Distress, Calm Cardiovascular: Yes: Regular Rate and Rhythm Respiratory: Yes: Regular, CTA Bilaterally Gastrointestinal: Yes: Normal Bowel Sounds, Soft Musculoskeletal: Yes: WNL Extremities: Yes: WNL Neurological: Yes: Alert, Oriented Psychiatric: Yes: Alert, Oriented Labs: CBC, BMP 07/19/18 06:30 07/19/18 09:13 INR, PTT INR 1.10 (0.83-1.09) H 07/15/18 06:20 Assessment/Plan patient coming in with urinary retention and hematuria htn hypothyroidism urinary retention hematuria r/o uti patient had one low grade fever plan monitor will not start abx rest as per the team and urology
--- NOTE | 2018-07-19 17:41 | CONSULT ---
Consult - text type - Consultation Consultation Note: Pt doing well weaver to sd Urine clear For voiding trial Would likely require bph procedure as pt had 1000 cc pvr Options discussed will develop terminal worker plan w pt
[2018-07-20] MEDS: SODIUM CHLORIDE 0.45%/POT 20 MEQ/1,000 ML INFUS.BAG IV SCH ×2 (01:12→12:56)
[2018-07-20] MEDS: ACETAMINOPHEN 500 MG TABLET (FP) PO PRN (01:13)
[2018-07-20] MEDS: LEVOTHYROXINE NA 125 MCG TABLET (FP) PO SCH (06:00)
[2018-07-20 06:42] LABS: HEMATOCRIT 30.4 % (35.4-49); HEMOGLOBIN 10.9 GM/dL (11.7-16.9); MCH 32.3 pg (25.7-33.7); MCHC 35.9 g/dl (32.0-35.9); MEAN CELL VOLUME 89.8 fl (80-96); MEAN PLT VOLUME 7.8 fl (7.5-11.1); PLATELET COUNT 120 K/MM3 (134-434); RBC 3.38 M/mm3 (4.00-5.60); RDW 12.5 % (11.9-15.9); WHITE BLOOD COUNT 6.7 K/mm3 (4.0-10.0)
[2018-07-20 07:25] LABS: ANION GAP 6 MMOL/L (8-16); BLOOD UREA NITROGEN 23 mg/dL (7-18); CALCIUM 7.8 mg/dL (8.5-10.1); CHLORIDE 104 mmol/L (98-107); CO2 30 mmol/L (21-32); CREATININE 1.3 mg/dL (0.55-1.3); GLUCOSE,RANDOM 110 mg/dL (74-106); MAGNESIUM 2.1 mg/dL (1.8-2.4); PHOSPHOROUS 2.9 mg/dL (2.5-4.9); POTASSIUM 3.8 mmol/L (3.5-5.1); SODIUM 140 mmol/L (136-145)
[2018-07-20] MEDS: TAMSULOSIN HCL 0.4 MG CAP PO SCH (08:04)
--- NOTE | 2018-07-20 09:24 | PN ---
Progress Note, Physician History of Present Illness: stable no complaints - Current Medication List Current Medications: Active Medications Acetaminophen (Tylenol -) 500 mg PO Q6H PRN PRN Reason: PAIN Last Admin: 07/20/18 01:13 Dose: 500 mg Potassium Chloride/Sodium Chloride (1/2ns+20meq Kcl) 20 meq in 1,000 mls @ 75 mls/hr IV ASDIR [facility] Last Admin: 07/20/18 01:12 Dose: 75 mls/hr Levothyroxine Sodium (Synthroid -) 125 mcg PO DAILY@0700 [facility] Last Admin: 07/20/18 06:00 Dose: 125 mcg Tamsulosin HCl (Flomax -) 0.8 mg PO DAILY@0830 [facility] Last Admin: 07/20/18 08:04 Dose: 0.8 mg - Objective Vital Signs: Vital Signs Temperature 97.9 F 07/20/18 06:32 Pulse Rate 69 07/20/18 06:32 Respiratory Rate 20 07/20/18 06:32 Blood Pressure 125/82 07/20/18 06:32 O2 Sat by Pulse Oximetry (%) 98 07/19/18 21:00 Constitutional: Yes: No Distress, Calm Cardiovascular: Yes: Regular Rate and Rhythm Respiratory: Yes: Regular, CTA Bilaterally Gastrointestinal: Yes: Normal Bowel Sounds, Soft Genitourinary: Yes: Reese Present Musculoskeletal: Yes: WNL Extremities: Yes: WNL Neurological: Yes: Alert, Oriented Psychiatric: Yes: Alert, Oriented Labs: CBC, BMP 07/20/18 06:00 07/20/18 06:00 INR, PTT INR 1.10 (0.83-1.09) H 07/15/18 06:20 Assessment/Plan patient coming in with urinary retention and hematuria htn hypothyroidism urinary retention hematuria r/o uti patient had one low grade fever plan continue to monitor urine clear await for final plan rest as per the team
--- NOTE | 2018-07-20 10:23 | PN ---
Progress Note (short form) - Note Progress Note: This patient is in urinary retention secondary to BPH. As evidenced by his very high post void residual he will require 1 to 2 weeks of bladder rest within an indwelling Reese catheter. He should follow up as an outpatient for your prostate ablative procedure.
--- NOTE | 2018-07-20 14:07 | PN ---
Progress Note, Physician Chief Complaint: The patient seen and examined in his room. Hematuria persists. No fever. History of Present Illness: This is a 72 year old gentleman with hx of BPH, Hypertension, Hypothyrodism who presented with hematuria and found to have blood clots in bladder requiring CBI with development of FRANKLIN from bladder outlet obstruction. Was on CBI. Now off CBI and feels better. - Current Medication List Current Medications: Active Medications Acetaminophen (Tylenol -) 500 mg PO Q6H PRN PRN Reason: PAIN Last Admin: 07/20/18 01:13 Dose: 500 mg Potassium Chloride/Sodium Chloride (1/2ns+20meq Kcl) 20 meq in 1,000 mls @ 75 mls/hr IV ASDIR [facility] Last Admin: 07/20/18 12:56 Dose: 75 mls/hr Levothyroxine Sodium (Synthroid -) 125 mcg PO DAILY@0700 [facility] Last Admin: 07/20/18 06:00 Dose: 125 mcg Tamsulosin HCl (Flomax -) 0.8 mg PO DAILY@0830 [facility] Last Admin: 07/20/18 08:04 Dose: 0.8 mg - Objective Vital Signs: Vital Signs Temperature 98.5 F 07/20/18 10:00 Pulse Rate 67 07/20/18 10:00 Respiratory Rate 20 07/20/18 10:00 Blood Pressure 112/63 07/20/18 10:00 O2 Sat by Pulse Oximetry (%) 99 07/20/18 09:00 Constitutional: Yes: No Distress, Anxious Eyes: Yes: Conjunctiva Clear HENT: Yes: Atraumatic Neck: Yes: Trachea Midline Cardiovascular: Yes: Regular Rate and Rhythm Respiratory: Yes: Regular, CTA Bilaterally Gastrointestinal: Yes: Normal Bowel Sounds, Soft Genitourinary: Yes: Reese Present, Hematuria. No: CVA Tenderness - Left, CVA Tenderness - Right Edema: No Labs: CBC, BMP 07/20/18 06:00 07/20/18 06:00 INR, PTT INR 1.10 (0.83-1.09) H 07/15/18 06:20 Assessment/Plan This is a 72 year old gentleman with hx of BPH, Hypertension, Hypothyrodism who presented with hematuria and found to have blood clots in bladder requiring CBI with development of FRANKLIN from bladder outlet obstruction. The Azotemia is improving slowly, and the volume status seems acceptable. Serum electrolytes in acceptable range. Will trend the renal functions. Romelia Banks MD
--- NOTE | 2018-07-20 19:38 | PN ---
Progress Note, Physician Chief Complaint: Pt symptoms much improved. Patient should be discharged tomorrow with urology follow up - Current Medication List Current Medications: Active Medications Acetaminophen (Tylenol -) 500 mg PO Q6H PRN PRN Reason: PAIN Last Admin: 07/20/18 01:13 Dose: 500 mg Potassium Chloride/Sodium Chloride (1/2ns+20meq Kcl) 20 meq in 1,000 mls @ 75 mls/hr IV ASDIR [facility] Last Admin: 07/20/18 12:56 Dose: 75 mls/hr Levothyroxine Sodium (Synthroid -) 125 mcg PO DAILY@0700 [facility] Last Admin: 07/20/18 06:00 Dose: 125 mcg Tamsulosin HCl (Flomax -) 0.8 mg PO DAILY@0830 [facility] Last Admin: 07/20/18 08:04 Dose: 0.8 mg - Objective Vital Signs: Vital Signs Temperature 97.9 F 07/20/18 15:17 Pulse Rate 78 07/20/18 15:17 Respiratory Rate 20 07/20/18 15:17 Blood Pressure 131/66 07/20/18 15:17 O2 Sat by Pulse Oximetry (%) 99 07/20/18 09:00 Constitutional: Yes: Well Nourished, No Distress, Calm Eyes: Yes: Conjunctiva Clear, PERRL HENT: Yes: Atraumatic, Normocephalic Neck: Yes: Supple Cardiovascular: Yes: Regular Rate and Rhythm Respiratory: Yes: Regular, CTA Bilaterally Gastrointestinal: Yes: Normal Bowel Sounds, Soft ...Rectal Exam: Yes: Deferred Genitourinary: Yes: Weaver Present Edema: No Peripheral Pulses WNL: Yes Peripheral Pulses: Left Radial: 2+, Right Radial: 2+, Left Doralis Pedis: 2+, Right Dorsalis Pedis: 2+ Labs: CBC, BMP 07/20/18 06:00 07/20/18 06:00 INR, PTT INR 1.10 (0.83-1.09) H 07/15/18 06:20 Problem List - Problems (1) Urinary retention with incomplete bladder emptying Assessment/Plan: trial of void in the morning, if successful, d/c weaver with plans to d/c home in the afternoon pt needs urology f/u appt prior to discharge home pt stable off Abx and serum Cr has improved Code(s): R33.9 - RETENTION OF URINE, UNSPECIFIED Impression/Plan Impression/Plan: DISPO: -home tomorrow -full code -OOB to chair/ambulate as tolerated Visit type - Emergency Visit Emergency Visit: Yes ED Registration Date: 07/17/18 Care time: The patient presented to the Emergency Department on the above date and was hospitalized for further evaluation of their emergent condition. - New Patient This patient is new to me today: Yes Date on this admission: 07/17/18 - Critical Care Critical Care patient: No - Discharge Referral Referred to [facility] Med P.C.: No
[2018-07-21] MEDS: SODIUM CHLORIDE 0.45%/POT 20 MEQ/1,000 ML INFUS.BAG IV SCH ×2 (01:57→15:13)
[2018-07-21] MEDS ORDERED: PT OWN MED DRAWER 7, Y5N ONE (06:10)
[2018-07-21] MEDS: LEVOTHYROXINE NA 125 MCG TABLET (FP) PO SCH (06:13)
[2018-07-21] MEDS: TAMSULOSIN HCL 0.4 MG CAP PO SCH (07:45)
--- NOTE | 2018-07-21 11:00 | PN ---
Progress Note (short form) - Note Progress Note: Renal follow up for FRANKLIN Pt seen and examined at the bedside no acute complaints but has gross hematuria again no sob, cp, abd pain Vital Signs Temperature 98.3 F 07/21/18 10:00 Pulse Rate 72 07/21/18 10:00 Respiratory Rate 18 07/21/18 10:00 Blood Pressure 134/90 07/21/18 10:00 O2 Sat by Pulse Oximetry (%) 95 07/21/18 09:00 Intake & Output 07/18/18 07/19/18 07/20/18 07/21/18 23:59 23:59 23:59 23:59 Intake Total 8700 1090 1850 675 Output Total 75723 2000 600 1800 Balance -4500 -910 1250 -1125 NAD CTA weaver with gross hematuria CBC, BMP 07/20/18 06:00 07/20/18 06:00 Current Medications Acetaminophen (Tylenol -) 500 mg PO Q6H PRN PRN Reason: PAIN Last Admin: 07/20/18 01:13 Dose: 500 mg Potassium Chloride/Sodium Chloride (1/2ns+20meq Kcl) 20 meq in 1,000 mls @ 75 mls/hr IV ASDIR [facility] Last Admin: 07/21/18 01:57 Dose: 75 mls/hr Levothyroxine Sodium (Synthroid -) 125 mcg PO DAILY@0700 [facility] Last Admin: 07/21/18 06:13 Dose: 125 mcg Tamsulosin HCl (Flomax -) 0.8 mg PO DAILY@0830 [facility] Last Admin: 07/21/18 07:45 Dose: 0.8 mg 72 year old gentleman with hx of BPH, Hypertension, Hypothyrodism who presented with hematuria and found to have blood clots in bladder requiring CBI with development of FRANKLIN from bladder outlet obstruction despite CBI. #FRANKLIN secondary to badder outlet obstruction despite CBI in setting of hematuria +/- LANDON/diuretic induced renal hypoprofusion #Hematuria with bladder clotts #Hypertension #Anemia Renal function now improved back to baseline Trend H/H with on-going hematuira may require CBI again, would follow up with urolgoy continue flomax Thank you Henri Medina DO
--- NOTE | 2018-07-21 11:02 | DS ---
Physical Exam: SUBJECTIVE: Patient seen and examined at the bedside. patient was for discharge home today but around 3pm, developed an acute episode luzma hematuria. OBJECTIVE: developed acute episode of luzma hematuria with clots when straining to use the bathroom to have BM (approximately 350cc or luzma bloody urine with numerous clots) weaver tubing removed, existing flushed/irrigated with sterile saline replaced with new tubing. repeat CBC without any change Hold off on discharge until a.m. Concern that patient may develop further bleeding overnight, as well as pain. Patient has an appointment tomorrow 07/22/[address] Bob. If no overnight complications, patient to leave from the hospital early a.m. to see urology. Vital Signs Period Temp Pulse Resp BP Sys/Ayala Pulse Ox Last 24 Hr 97.9 F-98.9 F 66-78 18-20 125-134/64-90 95-98 PHYSICAL EXAM GENERAL: The patient is awake, alert, and fully oriented, in no acute distress. HEAD: Normal with no signs of trauma. EYES: PERRL, extraocular movements intact, sclera anicteric, conjunctiva clear. ENT: Ears normal, nares patent, oropharynx clear without exudates, moist mucous membranes. NECK: Trachea midline, full range of motion, supple. LUNGS: Breath sounds equal, clear to auscultation bilaterally, no wheezes, no crackles, no accessory muscle use. HEART: Regular rate and rhythm, ABDOMEN: Soft, nontender, nondistended, normoactive bowel sounds, no guarding, no rebound, no hepatosplenomegaly, no masses. EXTREMITIES: 2+ pulses, warm, well-perfused, no edema. NEUROLOGICAL: Cranial nerves II through XII grossly intact. Normal speech, gait not observed. PSYCH: Normal mood, normal affect. SKIN: Warm, dry, normal turgor, no rashes or lesions noted. LABS HOSPITAL COURSE: Date of Admission:07/17/18 Date of Discharge: 07/22/18 : Urinary retention with incomplete bladder emptying. Had an acute bleeding episode today with small clots, irrigated weaver. replaced tubing. monitor overnight. Patient to be sent home with weaver catheter tomorrow from hospital to urology appointment 07/22 @ 0930.a.m. Continue flomax. called in to his pharmacy. If further bleeding overnight, will order CBC. CBC this evening unchanged. Monitor intake and output full code Minutes to complete discharge: 60 Discharge Summary Reason For Visit: HEMATURIA Current Active Problems Hematuria (Acute) Urinary retention with incomplete bladder emptying (Acute) Condition: Stable - Instructions Diet, Activity, Other Instructions: Mr. Blanchard. Please follow up with Dr. Bob tomorrow 9:15a.m. 07/22/2018 (urologist). Please bring your insurance card with you. Please call us with any questions that you have. [facility] [place] [phone] Referrals: Iglesia Bob MD., [Staff Physician] - (0915a.m. 07/22/2018. - address is [address] [place] [address]) Noni Rios MD [Primary Care Provider] - Disposition: HOME - Home Medications Comprehensive Discharge Medication List: Ambulatory Orders Levothyroxine [Synthroid -] 125 mg PO DAILY 07/16/18 Losartan-Hctz 100-25 mg Tab 100 mg PO DAILY 07/16/18 This patient is new to me today: Yes Date on this admission: 07/21/18 Emergency Visit: Yes ED Registration Date: 07/17/18 Care time: The patient presented to the Emergency Department on the above date and was hospitalized for further evaluation of their emergent condition. Critical Care patient: No - Discharge Referral Referred to [facility] Med P.C.: No
--- NOTE | 2018-07-21 12:02 | PN ---
Progress Note, Physician History of Present Illness: patient doing well foleys in place patient to follow with urology - Current Medication List Current Medications: Active Medications Acetaminophen (Tylenol -) 500 mg PO Q6H PRN PRN Reason: PAIN Last Admin: 07/20/18 01:13 Dose: 500 mg Potassium Chloride/Sodium Chloride (1/2ns+20meq Kcl) 20 meq in 1,000 mls @ 75 mls/hr IV ASDIR [facility] Last Admin: 07/21/18 01:57 Dose: 75 mls/hr Levothyroxine Sodium (Synthroid -) 125 mcg PO DAILY@0700 [facility] Last Admin: 07/21/18 06:13 Dose: 125 mcg Tamsulosin HCl (Flomax -) 0.8 mg PO DAILY@0830 [facility] Last Admin: 07/21/18 07:45 Dose: 0.8 mg - Objective Vital Signs: Vital Signs Temperature 98.3 F 07/21/18 10:00 Pulse Rate 72 07/21/18 10:00 Respiratory Rate 18 07/21/18 10:00 Blood Pressure 134/90 07/21/18 10:00 O2 Sat by Pulse Oximetry (%) 95 07/21/18 09:00 Constitutional: Yes: No Distress, Calm HENT: Yes: Atraumatic, Normocephalic Cardiovascular: Yes: Regular Rate and Rhythm Respiratory: Yes: Regular, CTA Bilaterally Gastrointestinal: Yes: Normal Bowel Sounds, Soft Genitourinary: Yes: Reese Present Musculoskeletal: Yes: WNL Extremities: Yes: WNL Neurological: Yes: Alert, Oriented Psychiatric: Yes: Alert, Oriented Labs: CBC, BMP 07/20/18 06:00 07/20/18 06:00 INR, PTT INR 1.10 (0.83-1.09) H 07/15/18 06:20 Assessment/Plan patient coming in with urinary retention and hematuria htn hypothyroidism urinary retention hematuria r/o uti patient had one low grade fever plan continue to monitor urine clear await for final plan rest as per the team patient to follow [facility] urology
[2018-07-21 14:04] LABS: ANION GAP 5 MMOL/L (8-16); BLOOD UREA NITROGEN 18 mg/dL (7-18); CHLORIDE 103 mmol/L (98-107); CO2 29 mmol/L (21-32); CREATININE 1.2 mg/dL (0.55-1.3); GLUCOSE,RANDOM 139 mg/dL (74-106); POTASSIUM 4.3 mmol/L (3.5-5.1); SODIUM 138 mmol/L (136-145)
[2018-07-21] MEDS ORDERED: LIDOCAINE HCL 5% TOP OINTMENT 50 GM TUBE TP ONE (16:00)
[2018-07-21 17:33] LABS: BASO % 0.6 % (0-2.0); HEMATOCRIT 31.6 % (35.4-49); HEMOGLOBIN 11.3 GM/dL (11.7-16.9); LYMPH % 14.3 % (8-40); MCHC 35.6 g/dl (32.0-35.9); MEAN CELL VOLUME 89.8 fl (80-96); MEAN PLT VOLUME 8.1 fl (7.5-11.1); MONO % 12.7 % (3.8-10.2); NEUT % 68.4 % (42.8-82.8); PLATELET COUNT 155 K/MM3 (134-434); RBC 3.52 M/mm3 (4.00-5.60); RDW 12.5 % (11.9-15.9)
[2018-07-22] MEDS: LEVOTHYROXINE NA 125 MCG TABLET (FP) PO SCH (06:11)
[2018-07-22] MEDS: TAMSULOSIN HCL 0.4 MG CAP PO SCH (07:37)
[2018-07-22 09:05] VITALS: BP 111/70; PULSE 67; TEMP 98.3
--- NOTE | 2018-07-22 16:24 | PN ---
Physical Exam: SUBJECTIVE: Patient seen and examined at the bedside. feels well, no pain overnight. OBJECTIVE: urine clear, no bleeding overnight, discharge with urology appt today with Dr. Bob Vital Signs Period Temp Pulse Resp BP Sys/Ayala Pulse Ox Last 24 Hr 97.9 F-98.7 F 67-75 18-18 111-135/70-80 96-96 GENERAL: The patient is awake, alert, and fully oriented, in no acute distress. HEAD: Normal with no signs of trauma. EYES: PERRL, extraocular movements intact, sclera anicteric, conjunctiva clear. ENT: Ears normal, nares patent, oropharynx clear without exudates, moist mucous membranes. NECK: Trachea midline, full range of motion, supple. LUNGS: Breath sounds equal, clear to auscultation bilaterally, no wheezes, no crackles, no accessory muscle use. HEART: Regular rate and rhythm, ABDOMEN: Soft, nontender, nondistended, normoactive bowel sounds, no guarding, no rebound, no hepatosplenomegaly, no masses. EXTREMITIES: 2+ pulses, warm, well-perfused, no edema. NEUROLOGICAL: Cranial nerves II through XII grossly intact. Normal speech, gait not observed. PSYCH: Normal mood, normal affect. SKIN: Warm, dry, normal turgor, no rashes or lesions noted. Laboratory Results - last 24 hr 07/21/18 16:00 WBC 6.0 RBC 3.52 L Hgb 11.3 L Hct 31.6 L MCV 89.8 MCH 32.0 MCHC 35.6 RDW 12.5 Plt Count 155 D MPV 8.1 Absolute Neuts (auto) 4.1 Neutrophils % 68.4 Lymphocytes % 14.3 D Monocytes % 12.7 H Eosinophils % 4.0 D Basophils % 0.6 Nucleated RBC % 0 ASSESSMENT/PLAN: : Urinary retention with incomplete bladder emptying. Had an acute bleeding episode yesterday with small clots, irrigated weaver. replaced tubing. monitored overnight with no further bleeding Patient has appt to see Dr. Bob today outpatient. discharged today. Continue flomax. called in to his pharmacy. Hematuria, resolved. full code Minutes to complete discharge: 60 Discharge Summary Reason For Visit: HEMATURIA Current Active Problems Hematuria (Acute) Urinary retention with incomplete bladder emptying (Acute) Condition: Stable Visit type - Emergency Visit Emergency Visit: Yes ED Registration Date: 07/17/18 Care time: The patient presented to the Emergency Department on the above date and was hospitalized for further evaluation of their emergent condition. - New Patient This patient is new to me today: No - Critical Care Critical Care patient: No - Discharge Referral Referred to [facility] Med [facility] No
== END 2018-07-22 09:29 | disposition home or self-care (01) | DRG 699 ==
LOC: JER 22:25 → JERBED 07-15 03:43 → J7W 07-15 08:31 → OBSVTOIN 07-17 14:46
PROVIDERS: ADMIT Internal Medicine; ATTEND Nurse Practitioner Family
PROC: 0T9B70Z Drainage of Bladder with Drainage Device, Via Natural or Artificial Opening (ICD-10-PCS; principal; 2018-07-17)
DX: N32.0 Bladder-neck obstruction (principal); N17.9 Acute kidney failure, unspecified; R31.0 Gross hematuria; R33.8 Other retention of urine; N40.0 Benign prostatic hyperplasia without lower urinary tract symptoms; I10 Essential (primary) hypertension; E03.9 Hypothyroidism, unspecified
CPT/HCPCS: 36415; 71045-TC-FY; 76775-TC; 76856-TC; 80048; 80053; 81003; 81015; 83735; 84100; 84443; 85025; 85027; 85610; 86850; 86900; 86901; 87086; 93005; 93010; 99285-25; G0378; J3480

== ENCOUNTER → 2018-07-23 | Emergency (ER) | payer BC ==
[~2018-07-23] MED LIST: SODIUM CHLORIDE 1,000 ML IV STA
[2018-07-23 01:04] VITALS: BP 109/73; PULSE 106; TEMP 97.7; BMI 30.2
[2018-07-23 01:47] LABS: URINE APPEARANCE CLOUDY; URINE BILIRUBIN NEGATIVE (<2.0 mg/dL); URINE COLOR YELLOW; URINE GLUCOSE (UA) NEGATIVE (NEGATIVE); URINE KETONE NEGATIVE (NEGATIVE); URINE LEUK ESTERASE NEGATIVE (NEGATIVE); URINE NITRITE NEGATIVE (NEGATIVE); URINE PROTEIN 1+ (NEGATIVE); URINE UROBILINOGEN NEGATIVE mg/dL (0.2-1.0)
[2018-07-23 01:56] LABS: BASO % 0.5 % (0-2.0); EOS % 3.7 % (0-4.5); HEMATOCRIT 32.6 % (35.4-49); HEMOGLOBIN 11.4 GM/dL (11.7-16.9); LYMPH % 14.3 % (8-40); MCH 31.7 pg (25.7-33.7); MCHC 35.1 g/dl (32.0-35.9); MEAN CELL VOLUME 90.3 fl (80-96); MEAN PLT VOLUME 7.6 fl (7.5-11.1); MONO % 10.2 % (3.8-10.2); NEUT % 71.3 % (42.8-82.8); PLATELET COUNT 187 K/MM3 (134-434); RBC 3.61 M/mm3 (4.00-5.60); RDW 12.9 % (11.9-15.9); WHITE BLOOD COUNT 7.4 K/mm3 (4.0-10.0)
[2018-07-23 01:59] LABS: URINE MUCUS RARE
[2018-07-23 02:23] LABS: ANION GAP 9 MMOL/L (8-16); BLOOD UREA NITROGEN 23 mg/dL (7-18); CALCIUM 8.3 mg/dL (8.5-10.1); CHLORIDE 106 mmol/L (98-107); CO2 26 mmol/L (21-32); CREATININE 1.9 mg/dL (0.55-1.3); GLUCOSE,RANDOM 139 mg/dL (74-106); POTASSIUM 4.5 mmol/L (3.5-5.1); SODIUM 141 mmol/L (136-145)
--- NOTE | 2018-07-23 03:42 | PDOC ---
History of Present Illness - General Chief Complaint: Urinary Problem Stated Complaint: URINARY PROBLEM Time Seen by Provider: 07/23/18 02:38 History Source: Patient Exam Limitations: No Limitations - History of Present Illness Initial Comments: 72 y/o M hx of HTN, hypothyroidism, BPH presents with urinary retention for >12 hours. Patient was just discharged from ED 07/22 for hematuria and urinary retention; CBI was done at that visit and patient discharged with Reese in place along with rx for Flomax. Patient followed up with the urologist, Dr. Bob today, and given his Reese was draining clear urine at the time, he was told it was okay to have his Reese removed. After removal of Reese, patient noted he was no longer voiding and developed some bladder discomfort. Denies fever, sob, cp, n/v, hematuria. 07/23/18 03:41 Past History - Past Medical History Allergies/Adverse Reactions: Allergies Allergy/AdvReac Type Severity Reaction Status Date / Time No Known Allergies Allergy Verified 07/23/18 00:59 Home Medications: Ambulatory Orders Levothyroxine [Synthroid -] 125 mg PO DAILY 07/16/18 Losartan-Hctz 100-25 mg Tab 100 mg PO DAILY 07/16/18 Tamsulosin HCl [Flomax -] 0.8 mg PO DAILY@0830 #60 cap.er.24h 07/21/18 COPD: No HTN: Yes Thyroid Disease: Yes - Suicide/Smoking/Psychosocial Hx Smoking History: Never smoked Have you smoked in the past 12 months: No Information on smoking cessation initiated: No Hx Alcohol Use: No Drug/Substance Use Hx: No Substance Use Type: None Hx Substance Use Treatment: No Review of Systems - Review of Systems Comments:: See HPI 07/23/18 03:49 *Physical Exam - Vital Signs Last Vital Signs Temp Pulse Resp BP Pulse Ox 97.7 F 106 H 20 109/73 98 07/23/18 01:00 07/23/18 01:00 07/23/18 01:00 07/23/18 01:00 07/23/18 01:00 - Physical Exam General Appearance: No: Apparent Distress Respiratory/Chest: positive: Lungs Clear, Normal Breath Sounds. negative: Respiratory Distress Cardiovascular: positive: Regular Rhythm, Regular Rate, S1, S2. negative: Murmur Gastrointestinal/Abdominal: positive: Normal Bowel Sounds, Soft, Other (Reese bag draining luzma blood). negative: Tender, Distended, Guarding, Rebound Extremity: positive: Normal Inspection. negative: Pedal Edema, Calf Tenderness Neurologic: positive: Fully Oriented, Alert, Normal Mood/Affect Moderate Sedation - Procedure Monitoring Vital Signs: Procedure Monitoring Vital Signs Temperature 97.7 F 07/23/18 01:00 Pulse Rate 106 H 07/23/18 01:00 Respiratory Rate 20 07/23/18 01:00 Blood Pressure 109/73 07/23/18 01:00 O2 Sat by Pulse Oximetry (%) 98 07/23/18 01:00 ED Treatment Course - LABORATORY CBC & Chemistry Diagram: 07/23/18 01:50 07/23/18 05:48 - ADDITIONAL ORDERS Additional order review: Laboratory Results 07/23/18 07/23/18 01:50 01:30 Sodium 141 Potassium 4.5 Chloride 106 Carbon Dioxide 26 Anion Gap 9 BUN 23 H Creatinine 1.9 H Creat Clearance w eGFR 35.22 Random Glucose 139 H Calcium 8.3 L Urine Color Yellow Urine Appearance Cloudy Urine pH 5.0 D Ur Specific [place] 1.010 Urine Protein 1+ H D Urine Glucose (UA) Negative Urine Ketones Negative Urine Blood 3+ H Urine Nitrite Negative Urine Bilirubin Negative Urine Urobilinogen Negative Ur Leukocyte Esterase Negative Urine WBC (Auto) 13 Urine RBC (Auto) 589 Urine Mucus Rare 07/23/18 01:50 RBC 3.61 L MCV 90.3 MCHC 35.1 RDW 12.9 MPV 7.6 Neutrophils % 71.3 Lymphocytes % 14.3 Monocytes % 10.2 Eosinophils % 3.7 Basophils % 0.5 Medical Decision Making - Medical Decision Making 72 y/o M hx of HTN, hypothyroidism and BPH presents with urinary retention after having Reese removed at urology office. Reese replaced in ED and noted to be draining hematuria. Patient otherwise denies any complaints and is resting comfortably. Abnormal Lab Results 07/23/18 07/23/18 07/23/18 01:30 01:50 01:50 RBC 3.61 L Hgb 11.4 L Hct 32.6 L BUN 23 H Creatinine 1.9 H Random Glucose 139 H Calcium 8.3 L Urine Protein 1+ H D Urine Blood 3+ H Labs notable for FRANKLIN with Cr of 1.9 UA shows blood FRANKLIN likely from obstructive uropathy Will give 1 L NS IVF and repeat BMP to assess improvement 07/23/18 03:49 Repeat BMP shows improvement in Cr to 1.5 Patient has appointment with Dr. Bob today at 3 PM Stable for d/c 07/23/18 06:20 *DC/Admit/Observation/Transfer Diagnosis at time of Disposition: Obstructive uropathy, Urinary retention Hematuria Qualifiers: Hematuria type: gross Qualified Code(s): R31.0 - Gross hematuria - Discharge Dispostion Condition at time of disposition: Stable - Referrals Referrals: Iglesia Bob MD., MD [Staff Physician] - 24 hours - Patient Instructions Printed Discharge Instructions: DI for Hematuria, DI for Urinary Retention in Men Additional Instructions: Thank you for choosing [facility]. It was a pleasure taking care of you. You were seen here for not being able to void and blood in urine You had a Reese placed Please follow-up with your urologist, Dr. Bob, today at 3 PM as scheduled Return to the Emergency Department if your symptoms worsen or persist, you have fever, shortness of breath, chest pain, severe abdominal pain, vomiting, not producing urine or other concerning symptoms. - Post Discharge Activity
--- NOTE | 2018-07-23 06:14 | PDOC ---
Attending Attestation - Resident Resident Name: Kaycee Tirado - ED Attending Attestation I have performed the following: I have examined & evaluated the patient, The case was reviewed & discussed with the resident, I agree w/resident's findings & plan, Exceptions are as noted - HPI HPI: 07/23/18 06:12 Pt with recent treatment for luzma hematuria with clots, CBI dc'ed with urology follow up with indwelling cath with leg bag. Cath was dc'ed for trial of void, here b/c not passing urine, distended suprapubic area with tenderness - Physicial Exam PE: 07/23/18 06:14 agree with exam as documented by PA post cath prior to cath pt had a distended suprapubic region with tenderness - Medical Decision Making 07/23/18 06:[address] weaver catheter send urine cbc, chem re-eval 07/23/18 06:17 UA no infection, +rbc Cr 1.9 from 1.2 Hgb stable Hydrate and resend bmp If Cr trending down, dc pt. Has f/u appointment with Dr Bob today 07/23 at 3pm 07/23/18 06:23 Cr downtrending, weaver draining DC with close Uro follow up
[2018-07-23 06:18] LABS: ANION GAP 6 MMOL/L (8-16); BLOOD UREA NITROGEN 20 mg/dL (7-18); CALCIUM 7.7 mg/dL (8.5-10.1); CHLORIDE 107 mmol/L (98-107); CO2 27 mmol/L (21-32); CREATININE 1.5 mg/dL (0.55-1.3); GLUCOSE,RANDOM 123 mg/dL (74-106); POTASSIUM 4.2 mmol/L (3.5-5.1); SODIUM 140 mmol/L (136-145)
== END | disposition home or self-care (01) ==
LOC: JER 00:21
PROC: 3E0337Z Introduction of Electrolytic and Water Balance Substance into Peripheral Vein, Percutaneous Approach (ICD-10-PCS; principal; 2018-07-23)
DX: N13.9 Obstructive and reflux uropathy, unspecified (principal); R33.9 Retention of urine, unspecified; R31.0 Gross hematuria; E03.9 Hypothyroidism, unspecified; I10 Essential (primary) hypertension; N40.0 Benign prostatic hyperplasia without lower urinary tract symptoms
CPT/HCPCS: 36415; 80048; 81003; 81015; 85025; 87086; 99281-25; 99282-25; J7030

== ENCOUNTER 2018-07-30 01:48 | Emergency (ER) | payer BC ==
--- NOTE | 2018-07-30 02:00 | PDOC ---
History of Present Illness - General Stated Complaint: POST OP PAIN Time Seen by Provider: 07/30/18 01:59 - History of Present Illness Initial Comments: 07/30/18 01:59 Mr. Blanchard is a 72 yo male w/ pmh of HTN, hypothyroidism, BPH, and recent prostate procedure today (TURP w/ Dr. Bob). Patient arrived with leg bag on and reports he hasn't had any increase in fluid level since 5pm. Patient also experiencing bilateral pelvic discomfort however no pain. The patient denies chest pain, shortness of breath, headache and dizziness. Denies fever, chills, nausea, vomit, diarrhea and constipation. Denies dysuria, frequency, urgency and hematuria. Past History - Past Medical History Allergies/Adverse Reactions: Allergies Allergy/AdvReac Type Severity Reaction Status Date / Time No Known Allergies Allergy Verified 07/30/18 02:07 Home Medications: Ambulatory Orders Levothyroxine [Synthroid -] 125 mg PO DAILY 07/16/18 Losartan-Hctz 100-25 mg Tab 100 mg PO DAILY 07/16/18 Tamsulosin HCl [Flomax -] 0.8 mg PO DAILY@0830 #60 cap.er.24h 07/21/18 Tamsulosin HCl [Flomax] 0.8 mg PO DAILY #180 cap.er.24h 07/23/18 Tamsulosin HCl [Flomax] 0.8 mg PO DAILY #60 cap.er.24h 07/23/18 COPD: No HTN: Yes Thyroid Disease: Yes - Suicide/Smoking/Psychosocial Hx Smoking History: Never smoked Have you smoked in the past 12 months: No Hx Alcohol Use: No Drug/Substance Use Hx: No Substance Use Type: None Hx Substance Use Treatment: No Review of Systems - Review of Systems Comments:: 07/30/18 02:00 GENERAL/CONSTITUTIONAL: No fever or chills. No weakness. HEAD, EYES, EARS, NOSE AND THROAT: No change in vision. No ear pain or discharge. No sore throat. CARDIOVASCULAR: No chest pain or shortness of breath RESPIRATORY: No cough, wheezing, or hemoptysis. GASTROINTESTINAL: +Bilateral lower abdominal discomfort (no pain) as described. No nausea, vomiting, diarrhea or constipation. GENITOURINARY: No dysuria, frequency, or change in urination. MUSCULOSKELETAL: No joint or muscle swelling or pain. No neck or back pain. SKIN: No rash NEUROLOGIC: No headache, vertigo, loss of consciousness, or change in strength/ sensation. ENDOCRINE: No increased thirst. No abnormal weight change HEMATOLOGIC/LYMPHATIC: No anemia, easy bleeding, or history of blood clots. ALLERGIC/IMMUNOLOGIC: No hives or skin allergy. *Physical Exam - Physical Exam Comments: 07/30/18 02:00 GENERAL: Awake, alert, and fully oriented, in no acute distress HEAD: No signs of trauma, normocephalic, atraumatic EYES: PERRLA, EOMI, sclera anicteric, conjunctiva clear ENT: Auricles normal inspection, hearing grossly normal, nares patent, oropharynx clear without exudates. Moist mucosa NECK: Normal ROM, supple, no lymphadenopathy, JVD, or masses LUNGS: No distress, speaks full sentences, clear to auscultation bilaterally HEART: Regular rate and rhythm, normal S1 and S2, no murmurs, rubs or gallops, peripheral pulses normal and equal bilaterally. ABDOMEN: Soft, nontender, normoactive bowel sounds. No guarding, no rebound. No masses EXTREMITIES: Normal inspection, Normal range of motion, no edema. No clubbing or cyanosis. NEUROLOGICAL: Cranial nerves II through XII grossly intact. Normal speech, normal gait, no focal sensorimotor deficits SKIN: Warm, Dry, normal turgor, no rashes or lesions noted. : Leg bag appreciated w/ scant blood upon presentation. Medical Decision Making - Medical Decision Making 07/30/18 02:57 Mr. Blanchard is a 72 yo male w/ pmh as described who presents for evaluation s/p TURP for inability to urinate further. Bedside US revealed 350cc's in patient bladder. Patient weaver bag empty of all but scant blood. Patient weaver irrigated with 50cc sterile water with good flow from catheter following this. New bag placed for observation of fluid output. 07/30/18 03:03 300 cc's observed in bag at this time. Fluid red tinged however appears to be clearing in color and flowing freely. 07/30/18 03:11 Discharging to home w/ instructions to f/u w/ urologist in AM. No concern for acute process at this time. *DC/Admit/Observation/Transfer Diagnosis at time of Disposition: Urinary retention with incomplete bladder emptying Hematuria Qualifiers: Hematuria type: unspecified type Qualified Code(s): R31.9 - Hematuria, unspecified - Discharge Dispostion Disposition: HOME - Referrals Referrals: Noni Rios MD [Primary Care Provider] - Iglesia Bob MD., MD [Staff Physician] - - Patient Instructions Printed Discharge Instructions: DI for Transurethral Resection of the Prostate Additional Instructions: You were evaluated today in the emergency room for your difficulty urinating after your procedure today. We cleared your blood clot and changed your leg bag and observed urine to be free flowing after this. Please follow-up with Urologist in the morning. Return to ER if any pain or other difficulty urinating. - Post Discharge Activity
[2018-07-30 02:08] VITALS: BMI 30.9
--- NOTE | 2018-07-30 03:15 | PDOC ---
Attending Attestation - Resident Resident Name: SharanmiltonDavid girard - ED Attending Attestation I have performed the following: I have examined & evaluated the patient, The case was reviewed & discussed with the resident, I agree w/resident's findings & plan, Exceptions are as noted - HPI HPI: 07/30/18 03:12 72M s/p TURP today came in for eval 2/2 weaver bag not filling - Physicial Exam PE: 07/30/18 03:13 Agree with exam as reported by resident - Medical Decision Making 07/30/18 03:13 Pt was freely draining clear, pink urine on my exam. No clots. Given recent TURP , exam consistent with expected findings. Triage tachycardia was resolved w/o intervention. HR low 90s on my exam Pt will f/u with Dr. Bob as planned
[2018-07-30 03:27] VITALS: BP 115/80; PULSE 102; TEMP 98.9
== END 2018-07-30 03:29 | disposition home or self-care (01) ==
LOC: JER 01:48
PROC: BT40ZZZ Ultrasonography of Bladder (ICD-10-PCS; principal; 2018-07-30)
PROC: 3C1ZX8Z Irrigation of Indwelling Device using Irrigating Substance, External Approach (ICD-10-PCS; 2018-07-30)
DX: R33.8 Other retention of urine (principal); N40.1 Benign prostatic hyperplasia with lower urinary tract symptoms; I10 Essential (primary) hypertension; E03.9 Hypothyroidism, unspecified
CPT/HCPCS: 99282-25

== ENCOUNTER 2021-10-24 20:35 | Inpatient (IN) | payer BC ==
[2021-10-24] MEDS ORDERED: MAG HYDROX/AL HYDROX/SIMETH -MYLANTA- ORAL SUSPENSION PO ONE (21:27)
[2021-10-24] MEDS ORDERED: FAMOTIDINE 20 MG/50 ML IVPB 20 MG/50 ML MG IVPB ONE ×2 (21:27→21:40)
[2021-10-24] MEDS ORDERED: MAG HYDROX/AL HYDROX/SIMETH 30 ML UNIT-DOSE CUP ONE (21:39)
[2021-10-24 21:52] LABS: BASO % 0.5 % (0-2.0); EOS % 1.9 % (0-4.5); HEMATOCRIT 44.3 % (35.4-49); HEMOGLOBIN 14.8 GM/dL (11.7-16.9); LYMPH % 14.4 % (8-40); MCHC 33.4 g/dl (32.0-35.9); MEAN CELL VOLUME 89.7 fl (80-96); MONO % 8.1 % (3.8-10.2); NEUT % 75.1 % (42.8-82.8); PLATELET COUNT 187 10^3/uL (134-434); RBC 4.93 M/mm3 (4.00-5.60); WHITE BLOOD COUNT 7.3 K/mm3 (4.0-10.0)
[2021-10-24 22:10] LABS: CHLORIDE 102 mmol/L (98-107); SODIUM 135 mmol/L (136-145)
[2021-10-24 22:12] LABS: BLOOD UREA NITROGEN 25.6 mg/dL (7-18); CALCIUM 9.3 mg/dL (8.5-10.1)
[2021-10-24 22:13] LABS: ALBUMIN 4.4 g/dl (3.4-5.0); CO2 28 mmol/L (21-32); GLUCOSE,RANDOM 175 mg/dL (74-106)
[2021-10-24 22:16] LABS: SGOT/AST 69 U/L (15-37)
[2021-10-24 22:17] LABS: BILIRUBIN,TOTAL 0.5 mg/dL (0.2-1); TOT PROT 8.2 g/dl (6.4-8.2)
[2021-10-24 22:19] LABS: ALK PHOS 52 U/L (45-117)
[2021-10-24 22:42] LABS: ANION GAP 4 MMOL/L (8-16); SGPT/ALT 47 U/L (13-61)
[2021-10-24 23:24] LABS: CALCIUM 8.3 mg/dL (8.5-10.1)
[2021-10-24 23:25] LABS: BLOOD UREA NITROGEN 23.9 mg/dL (7-18)
[2021-10-24 23:28] LABS: CREATININE 1.7 mg/dL (0.55-1.3)
[2021-10-24] MEDS ORDERED: SODIUM CHLORIDE 0.9% 500 ML INFUS.BAG IV ONE (23:54)
[2021-10-25] MEDS ORDERED: SODIUM CHLORIDE 1,000 ML IV SCH (03:00)
[2021-10-25 03:50] VITALS: BMI 30.5
[2021-10-25] MEDS: HEPARIN NA (PORCINE) 5,000 UNITS/ML 1ML VIAL SQ SCH ×2 (06:06→13:27)
[2021-10-25] MEDS ORDERED: LEVOTHYROXINE NA 125 MCG TABLET (FP) PO SCH (07:00)
[2021-10-25] MEDS ORDERED: amLODIPine BESYLATE 10 MG TABLET (FP) PO ONE (08:00)
[2021-10-25 09:34] LABS: EPI CELLS 4 /uL (0-25.1); HYALINE CASTS 0 /uL (0-3.1); URINE APPEARANCE CLEAR; URINE BACTERIA 299 /uL (0-1359); URINE BILIRUBIN NEGATIVE (NEGATIVE); URINE COLOR YELLOW; URINE GLUCOSE (UA) NEGATIVE (NEGATIVE); URINE KETONE NEGATIVE (NEGATIVE); URINE LEUK ESTERASE NEGATIVE (NEGATIVE); URINE NITRITE NEGATIVE (NEGATIVE); URINE PROTEIN TRACE (NEGATIVE); URINE RBC 6 /uL (0-23.9); URINE UROBILINOGEN 0.2 mg/dL (0.2-1.0); URINE WBC 1 /uL (0-25.8)
[2021-10-25] MEDS ORDERED: PANTOPRAZOLE 40 MG TABLET PO SCH (10:00)
[2021-10-25] MEDS ORDERED: LOSARTAN POTASSIUM 50 MG TABLET PO SCH (10:00)
[2021-10-25 12:40] LABS: BASO % 0.4 % (0-2.0); EOS % 2.8 % (0-4.5); HEMATOCRIT 41.9 % (35.4-49); HEMOGLOBIN 14.3 GM/dL (11.7-16.9); MCH 30.3 pg (25.7-33.7); MEAN CELL VOLUME 89.2 fl (80-96); MEAN PLT VOLUME 7.6 fl (7.5-11.1); MONO % 9.6 % (3.8-10.2); NEUT % 69.2 % (42.8-82.8); PLATELET COUNT 154 10^3/uL (134-434); WHITE BLOOD COUNT 6.7 K/mm3 (4.0-10.0)
[2021-10-25 13:06] LABS: ALBUMIN 3.9 g/dl (3.4-5.0); BLOOD UREA NITROGEN 21.4 mg/dL (7-18); CALCIUM 8.9 mg/dL (8.5-10.1); MAGNESIUM 2.2 mg/dL (1.8-2.4)
[2021-10-25 13:09] LABS: CREATININE 1.4 mg/dL (0.55-1.3); PHOSPHOROUS 2.7 mg/dL (2.5-4.9)
[2021-10-25 13:10] LABS: TOT PROT 6.8 g/dl (6.4-8.2)
[2021-10-25 16:51] VITALS: BP 134/74; PULSE 74; TEMP 98.2
[2021-10-25] MEDS ORDERED: ATORVASTATIN CA 40 MG TABLET (FP) PO SCH (22:00)
== END 2021-10-25 17:30 | disposition home or self-care (01) | DRG 683 ==
LOC: JER 20:35 → JERBED 22:47 → J7W 10-25 03:18
PROVIDERS: ADMIT Internal Medicine; ATTEND Internal Medicine
DX: N17.9 Acute kidney failure, unspecified (principal); I16.1 Hypertensive emergency; I10 Essential (primary) hypertension; E03.9 Hypothyroidism, unspecified; N40.0 Benign prostatic hyperplasia without lower urinary tract symptoms; K21.9 Gastro-esophageal reflux disease without esophagitis; E66.9 Obesity, unspecified; Z68.30 Body mass index [BMI] 30.0-30.9, adult; E86.0 Dehydration
CPT/HCPCS: 36415; 71046-TC-FY; 76700-TC; 80048; 80053; 81003; 82550; 82553; 83036; 83690; 83735; 84100; 84443; 84484; 84540; 85025; 87086; 93005; 93010; 99285-25; C9803-CS; G0378; J1644; U0003; U0005

== ENCOUNTER 2021-11-04 08:16 | Inpatient (IN) | payer BC, OTHER ==
[2021-11-04 08:38] VITALS: BMI 31.4
[2021-11-04] MEDS ORDERED: LIDOCAINE HCL 2% JELLY 10 ML CARTRIDGE UR ONE (09:03)
[2021-11-04 09:59] LABS: BASO % 0.3 % (0-2.0); EOS % 0.9 % (0-4.5); HEMATOCRIT 33.8 % (35.4-49); HEMOGLOBIN 11.6 GM/dL (11.7-16.9); LYMPH % 11.4 % (8-40); MCH 30.8 pg (25.7-33.7); MCHC 34.4 g/dl (32.0-35.9); MEAN CELL VOLUME 89.4 fl (80-96); MEAN PLT VOLUME 7.9 fl (7.5-11.1); MONO % 7.6 % (3.8-10.2); NEUT % 79.8 % (42.8-82.8); PLATELET COUNT 139 10^3/uL (134-434); RBC 3.78 M/mm3 (4.00-5.60); RDW 12.8 % (11.9-15.9); WHITE BLOOD COUNT 8.3 K/mm3 (4.0-10.0)
[2021-11-04 10:12] LABS: ACTIVATED PTT 25.1 SECONDS (25.2-36.5); INR 1.13 (0.83-1.09)
[2021-11-04 10:26] LABS: ALBUMIN 4.1 g/dl (3.4-5.0)
[2021-11-04 10:27] LABS: BLOOD UREA NITROGEN 33.3 mg/dL (7-18); CALCIUM 9.3 mg/dL (8.5-10.1)
[2021-11-04 10:29] LABS: CREATININE 1.6 mg/dL (0.55-1.3)
[2021-11-04 10:31] LABS: BILIRUBIN,TOTAL 0.5 mg/dL (0.2-1); TOT PROT 6.7 g/dl (6.4-8.2)
[2021-11-04] MEDS ORDERED: LIDOCAINE HCL 2% JELLY (5 ML/TUBE) ONE (10:40)
[2021-11-04 10:55] LABS: PH,URINE 6.5 (5.0-8.0); URINE BILIRUBIN Negative (NEGATIVE); URINE COLOR Red; URINE GLUCOSE (UA) Negative (NEGATIVE); URINE KETONE Negative (NEGATIVE); URINE LEUK ESTERASE Negative (NEGATIVE); URINE NITRITE Negative (NEGATIVE); URINE PROTEIN 3+ (NEGATIVE); URINE UROBILINOGEN 0.2 mg/dL (0.2-1.0)
[2021-11-04 10:58] LABS: URINE APPEARANCE TURBID; URINE RBC TNTC /uL (0-23.9); URINE WBC 0-10 /uL (0-25.8)
[2021-11-04] MEDS ORDERED: ACETAMINOPHEN 1000 MG/100 ML BAG IVPB ONE (21:01)
[2021-11-05] MEDS ORDERED: LIDOCAINE HCL 2% (50ML VIAL) DT ONE (10:09)
[2021-11-05] MEDS ORDERED: LIDOCAINE HCL 2% JELLY 10 ML CARTRIDGE UR ONE (10:11)
[2021-11-05 12:16] LABS: HEMATOCRIT 23.7 % (35.4-49); HEMOGLOBIN 8.1 GM/dL (11.7-16.9); MCH 30.4 pg (25.7-33.7); MCHC 34.4 g/dl (32.0-35.9); MEAN CELL VOLUME 88.4 fl (80-96); MEAN PLT VOLUME 8.4 fl (7.5-11.1); PLATELET COUNT 139 10^3/uL (134-434); RBC 2.68 M/mm3 (4.00-5.60); RDW 12.7 % (11.9-15.9); WHITE BLOOD COUNT 11.5 K/mm3 (4.0-10.0)
[2021-11-05 12:32] LABS: ALBUMIN 3.4 g/dl (3.4-5.0); BLOOD UREA NITROGEN 30.8 mg/dL (7-18); CALCIUM 8.3 mg/dL (8.5-10.1)
[2021-11-05 12:36] LABS: CREATININE 1.6 mg/dL (0.55-1.3)
[2021-11-05 12:37] LABS: BILIRUBIN,TOTAL 0.5 mg/dL (0.2-1); TOT PROT 5.6 g/dl (6.4-8.2)
[2021-11-05] MEDS ORDERED: ACETAMINOPHEN 325 MG TABLET (FP) PO PRN (16:21)
[2021-11-05] MEDS ORDERED: ACETAMINOPHEN 1000 MG/100 ML BAG IVPB PRN (16:22)
[2021-11-05] MEDS: INSULIN SLIDING SCALE (NOVOLOG) 1 VIAL SQ SCH ×2 (18:11→22:45)
[2021-11-05] MEDS: FINASTERIDE 5 MG TABLET (FP) PO SCH (18:11)
[2021-11-05] MEDS ORDERED: INSULIN (NOVOLOG) ASPART 100 UNITS/ML 10ML VIAL ONE (21:46)
[2021-11-05] MEDS ORDERED: ATORVASTATIN CA 40 MG TABLET (FP) PO SCH (22:00)
[2021-11-06] MEDS ORDERED: LEVOTHYROXINE NA 125 MCG TABLET (FP) PO SCH (06:00)
[2021-11-06] MEDS: INSULIN SLIDING SCALE (NOVOLOG) 1 VIAL SQ SCH ×4 (07:37→21:27)
[2021-11-06] MEDS ORDERED: TAMSULOSIN HCL 0.4 MG CAP PO SCH (08:30)
[2021-11-06] MEDS ORDERED: PANTOPRAZOLE 40 MG TABLET PO SCH (10:00)
[2021-11-06] MEDS ORDERED: amLODIPine BESYLATE 10 MG TABLET (FP) PO SCH (10:00)
[2021-11-06 10:03] LABS: BASO % 0.2 % (0-2.0); EOS % 0.6 % (0-4.5); HEMATOCRIT 26.9 % (35.4-49); HEMOGLOBIN 9.4 GM/dL (11.7-16.9); LYMPH % 16.5 % (8-40); MCH 30.7 pg (25.7-33.7); MCHC 34.8 g/dl (32.0-35.9); MEAN CELL VOLUME 88.3 fl (80-96); MEAN PLT VOLUME 8.3 fl (7.5-11.1); MONO % 9.7 % (3.8-10.2); PLATELET COUNT 140 10^3/uL (134-434); RBC 3.04 M/mm3 (4.00-5.60); RDW 13.2 % (11.9-15.9); WHITE BLOOD COUNT 13.4 K/mm3 (4.0-10.0)
[2021-11-06] MEDS: FINASTERIDE 5 MG TABLET (FP) PO SCH (10:26)
[2021-11-06 10:54] LABS: CALCIUM 8.7 mg/dL (8.5-10.1)
[2021-11-06 10:55] LABS: ALBUMIN 3.5 g/dl (3.4-5.0); BLOOD UREA NITROGEN 29.4 mg/dL (7-18); MAGNESIUM 2.3 mg/dL (1.8-2.4)
[2021-11-06 10:57] LABS: CREATININE 1.4 mg/dL (0.55-1.3); PHOSPHOROUS 2.6 mg/dL (2.5-4.9)
[2021-11-06 10:58] LABS: BILIRUBIN,TOTAL 1.4 mg/dL (0.2-1)
[2021-11-06] MEDS ORDERED: ONDANSETRON 4 MG/2 ML VIAL IVPUSH PRN ×2 (14:12→17:32)
[2021-11-06] MEDS ORDERED: PROMETHAZINE HCL 25 MG/1 ML VIAL IVPUSH PRN ×2 (14:12→17:32)
[2021-11-06] MEDS ORDERED: LACTATED RINGERS SOLUTION 1,000 ML IV SCH (14:15)
[2021-11-06] MEDS ORDERED: DEXAMETHASONE SOD PHOSPHATE 4 MG/1 ML VIAL ONE (14:58)
[2021-11-06] MEDS ORDERED: LIDOCAINE HCL/PF 2% SDV 5ML VIAL ONE (14:58)
[2021-11-06] MEDS ORDERED: PROPOFOL 20 ML ONE ×2 (14:59→16:45)
[2021-11-06] MEDS ORDERED: LIDOCAINE HCL 2% JELLY 10 ML CARTRIDGE ONE (16:38)
[2021-11-06] MEDS ORDERED: LIDOCAINE HCL 2% JELLY (5 ML/TUBE) TP ONE (16:40)
[2021-11-06] MEDS ORDERED: ACETAMINOPHEN 325 MG TABLET (FP) PO PRN (17:32)
[2021-11-06] MEDS: LACTATED RINGERS SOLUTION 1,000 ML IV SCH (21:28)
[2021-11-06] MEDS: ATORVASTATIN CA 40 MG TABLET (FP) PO SCH (21:29)
[2021-11-07] MEDS: LEVOTHYROXINE NA 125 MCG TABLET (FP) PO SCH (05:25)
[2021-11-07] MEDS: INSULIN SLIDING SCALE (NOVOLOG) 1 VIAL SQ SCH ×4 (06:04→21:32)
[2021-11-07] MEDS: TAMSULOSIN HCL 0.4 MG CAP PO SCH (08:14)
[2021-11-07 08:39] LABS: HEMATOCRIT 22.9 % (35.4-49); HEMOGLOBIN 7.9 GM/dL (11.7-16.9); MCH 30.8 pg (25.7-33.7); MCHC 34.6 g/dl (32.0-35.9); MEAN CELL VOLUME 88.8 fl (80-96); MEAN PLT VOLUME 8.1 fl (7.5-11.1); PLATELET COUNT 131 10^3/uL (134-434); RBC 2.57 M/mm3 (4.00-5.60); RDW 13.4 % (11.9-15.9); WHITE BLOOD COUNT 14.2 K/mm3 (4.0-10.0)
[2021-11-07 09:19] LABS: ALBUMIN 2.8 g/dl (3.4-5.0); CALCIUM 7.8 mg/dL (8.5-10.1); CREATININE 1.2 mg/dL (0.55-1.3)
[2021-11-07 09:20] LABS: BILIRUBIN,TOTAL 0.4 mg/dL (0.2-1); BLOOD UREA NITROGEN 22.8 mg/dL (7-18)
[2021-11-07 09:21] LABS: TOT PROT 5.3 g/dl (6.4-8.2)
[2021-11-07] MEDS: FINASTERIDE 5 MG TABLET (FP) PO SCH (09:32)
[2021-11-07] MEDS: amLODIPine BESYLATE 10 MG TABLET (FP) PO SCH (09:32)
[2021-11-07] MEDS: PANTOPRAZOLE 40 MG TABLET PO SCH (09:32)
[2021-11-07] MEDS: LACTATED RINGERS SOLUTION 1,000 ML IV SCH (10:33)
[2021-11-07] MEDS ORDERED: INSULIN (NOVOLOG) ASPART 100 UNITS/ML 10ML VIAL ONE ×2 (12:07→16:46)
[2021-11-07] MEDS: ATORVASTATIN CA 40 MG TABLET (FP) PO SCH (21:32)
[2021-11-08] MEDS: LEVOTHYROXINE NA 125 MCG TABLET (FP) PO SCH (06:22)
[2021-11-08] MEDS: INSULIN SLIDING SCALE (NOVOLOG) 1 VIAL SQ SCH ×3 (06:26→16:23)
[2021-11-08 07:43] LABS: MCH 31.5 pg (25.7-33.7); MCHC 34.8 g/dl (32.0-35.9); MEAN CELL VOLUME 90.5 fl (80-96); MEAN PLT VOLUME 8.1 fl (7.5-11.1); PLATELET COUNT 181 10^3/uL (134-434); RBC 2.54 M/mm3 (4.00-5.60); RDW 13.5 % (11.9-15.9); WHITE BLOOD COUNT 11.7 K/mm3 (4.0-10.0)
[2021-11-08 08:07] LABS: ALBUMIN 3.2 g/dl (3.4-5.0); CALCIUM 8.3 mg/dL (8.5-10.1)
[2021-11-08 08:08] LABS: BLOOD UREA NITROGEN 23.5 mg/dL (7-18)
[2021-11-08 08:11] LABS: CREATININE 1.3 mg/dL (0.55-1.3)
[2021-11-08] MEDS: TAMSULOSIN HCL 0.4 MG CAP PO SCH (08:11)
[2021-11-08 08:12] LABS: BILIRUBIN,TOTAL 0.4 mg/dL (0.2-1); TOT PROT 5.7 g/dl (6.4-8.2)
[2021-11-08] MEDS: PANTOPRAZOLE 40 MG TABLET PO SCH (09:37)
[2021-11-08] MEDS: amLODIPine BESYLATE 10 MG TABLET (FP) PO SCH (09:37)
[2021-11-08] MEDS: FINASTERIDE 5 MG TABLET (FP) PO SCH (09:37)
[2021-11-08 15:41] VITALS: BP 124/59; PULSE 97; TEMP 98
== END 2021-11-08 18:41 | disposition home or self-care (01) | DRG 713 ==
LOC: JER 08:16 → JERBED 10:40 → J8W 13:34 → OBSVTOIN 11-05 15:31
PROVIDERS: ATTEND Internal Medicine
PROC: 30233N1 Transfusion of Nonautologous Red Blood Cells into Peripheral Vein, Percutaneous Approach (ICD-10-PCS; 2021-11-05)
PROC: 0VT08ZZ Resection of Prostate, Via Natural or Artificial Opening Endoscopic (ICD-10-PCS; principal; 2021-11-06 15:00)
PROC: 0TJB8ZZ Inspection of Bladder, Via Natural or Artificial Opening Endoscopic (ICD-10-PCS; 2021-11-06 15:00)
DX: N40.1 Benign prostatic hyperplasia with lower urinary tract symptoms (principal); D62 Acute posthemorrhagic anemia; R31.0 Gross hematuria; I10 Essential (primary) hypertension; E78.5 Hyperlipidemia, unspecified; E03.9 Hypothyroidism, unspecified; E11.65 Type 2 diabetes mellitus with hyperglycemia; K21.9 Gastro-esophageal reflux disease without esophagitis; R33.9 Retention of urine, unspecified
CPT/HCPCS: 36415; 36430; 74176-TC; 80053; 81003; 82962; 83036; 83735; 84100; 85025; 85027; 85610; 85730; 86850; 86900; 86901; 86922; 87086; 93005; 93010; 94760; 99285-25; C9803-CS; G0378; P9058; U0003; U0005

== ENCOUNTER 2021-11-15 13:53 | Inpatient (IN) | payer BC, OTHER ==
[2021-11-15 14:06] VITALS: BMI 30.2
[2021-11-15 15:20] LABS: BASO % 0.4 % (0-2.0); HEMATOCRIT 26.1 % (35.4-49); HEMOGLOBIN 8.7 GM/dL (11.7-16.9); LYMPH % 7.8 % (8-40); MCHC 33.3 g/dl (32.0-35.9); MEAN CELL VOLUME 89.9 fl (80-96); MEAN PLT VOLUME 7.1 fl (7.5-11.1); MONO % 6.7 % (3.8-10.2); NEUT % 84.1 % (42.8-82.8); PLATELET COUNT 356 10^3/uL (134-434); RBC 2.91 M/mm3 (4.00-5.60); RDW 13.8 % (11.9-15.9); WHITE BLOOD COUNT 11.1 K/mm3 (4.0-10.0)
[2021-11-15 15:25] LABS: INR 1.15 (0.83-1.09); PROTHROMBIN TIME (PATIENT) 13.3 SEC (9.7-13.0)
[2021-11-15 15:28] LABS: ACTIVATED PTT 26.3 SECONDS (25.2-36.5)
[2021-11-15 15:37] LABS: SODIUM 132 mmol/L (136-145)
[2021-11-15 15:39] LABS: CALCIUM 8.7 mg/dL (8.5-10.1)
[2021-11-15 15:41] LABS: BLOOD UREA NITROGEN 24.5 mg/dL (7-18); CO2 26 mmol/L (21-32); GLUCOSE,RANDOM 141 mg/dL (74-106)
[2021-11-15 15:43] LABS: CREATININE 1.9 mg/dL (0.55-1.3); SGOT/AST 100 U/L (15-37); SGPT/ALT 86 U/L (13-61)
[2021-11-15 15:45] LABS: BILIRUBIN,TOTAL 0.6 mg/dL (0.2-1); TOT PROT 6.5 g/dl (6.4-8.2)
[2021-11-15 15:46] LABS: ALK PHOS 51 U/L (45-117)
[2021-11-15 15:59] LABS: ANION GAP 7 MMOL/L (8-16); CHLORIDE 100 mmol/L (98-107)
[2021-11-15] MEDS ORDERED: SODIUM CHLORIDE 0.9% 1000 ML INFUS.BAG IV ONE (16:00)
[2021-11-15 18:37] LABS: BLOOD UREA NITROGEN 23.9 mg/dL (7-18); CALCIUM 8.3 mg/dL (8.5-10.1)
[2021-11-15 18:41] LABS: CREATININE 1.8 mg/dL (0.55-1.3)
[2021-11-15 19:27] LABS: EPI CELLS 10 /uL (0-25.1); HYALINE CASTS 2 /uL (0-3.1); PH,URINE 6.5 (5.0-8.0); URINE APPEARANCE TURBID; URINE BACTERIA 555 /uL (0-1359); URINE BILIRUBIN NEGATIVE (NEGATIVE); URINE COLOR YELLOW; URINE GLUCOSE (UA) NEGATIVE (NEGATIVE); URINE KETONE NEGATIVE (NEGATIVE); URINE LEUK ESTERASE 3+ (NEGATIVE); URINE NITRITE NEGATIVE (NEGATIVE); URINE PROTEIN 2+ (NEGATIVE); URINE RBC 677 /uL (0-23.9); URINE UROBILINOGEN 0.2 mg/dL (0.2-1.0); URINE WBC 8501 /uL (0-25.8)
[2021-11-15] MEDS ORDERED: SODIUM CHLORIDE 1,000 ML IV SCH (19:45)
[2021-11-16 07:05] LABS: BASO % 0.3 % (0-2.0); EOS % 1.5 % (0-4.5); HEMATOCRIT 26.9 % (35.4-49); LYMPH % 13.2 % (8-40); MCHC 33.4 g/dl (32.0-35.9); MEAN CELL VOLUME 89.7 fl (80-96); MEAN PLT VOLUME 6.9 fl (7.5-11.1); MONO % 6.8 % (3.8-10.2); NEUT % 78.2 % (42.8-82.8); PLATELET COUNT 304 10^3/uL (134-434); RDW 14.3 % (11.9-15.9); WHITE BLOOD COUNT 9.6 K/mm3 (4.0-10.0)
[2021-11-16 07:08] LABS: INR 1.2 (0.83-1.09); PROTHROMBIN TIME (PATIENT) 13.8 SEC (9.7-13.0)
[2021-11-16 07:10] LABS: ACTIVATED PTT 25.1 SECONDS (25.2-36.5)
[2021-11-16 07:48] LABS: ALBUMIN 2.8 g/dl (3.4-5.0); CALCIUM 8.4 mg/dL (8.5-10.1); MAGNESIUM 2.6 mg/dL (1.8-2.4)
[2021-11-16 07:49] LABS: BLOOD UREA NITROGEN 22.4 mg/dL (7-18)
[2021-11-16 07:52] LABS: CREATININE 1.5 mg/dL (0.55-1.3); PHOSPHOROUS 3.8 mg/dL (2.5-4.9)
[2021-11-16 07:53] LABS: BILIRUBIN,TOTAL 0.9 mg/dL (0.2-1); TOT PROT 5.7 g/dl (6.4-8.2)
[2021-11-16] MEDS ORDERED: SODIUM CHLORIDE 1,000 ML IV SCH (08:46)
[2021-11-16] MEDS ORDERED: ACETAMINOPHEN 325 MG TABLET (FP) PO PRN (08:49)
[2021-11-16] MEDS ORDERED: DEXTROSE 5%-WATER - 50 ML IVPB ONE (11:21)
[2021-11-16] MEDS: CEFTRIAXONE 1 GM in DEXTROSE 5%-WATER - 50 ML IVPB SCH (11:21)
[2021-11-16] MEDS ORDERED: cefTRIAXone SODIUM 1 GM VIAL ONE (11:21)
[2021-11-16 21:35] LABS: RETICULOCYTES 3.41 % (0.5-1.5)
[2021-11-17 07:02] LABS: BASO % 0.3 % (0-2.0); EOS % 2.4 % (0-4.5); HEMATOCRIT 26.2 % (35.4-49); HEMOGLOBIN 8.8 GM/dL (11.7-16.9); LYMPH % 15.4 % (8-40); MCHC 33.6 g/dl (32.0-35.9); MEAN CELL VOLUME 89.4 fl (80-96); MEAN PLT VOLUME 6.7 fl (7.5-11.1); MONO % 8.1 % (3.8-10.2); NEUT % 73.8 % (42.8-82.8); PLATELET COUNT 323 10^3/uL (134-434); RBC 2.93 M/mm3 (4.00-5.60); RDW 14.1 % (11.9-15.9); WHITE BLOOD COUNT 8.3 K/mm3 (4.0-10.0)
[2021-11-17 07:30] LABS: BLOOD UREA NITROGEN 17.7 mg/dL (7-18); CALCIUM 7.9 mg/dL (8.5-10.1); MAGNESIUM 2.3 mg/dL (1.8-2.4)
[2021-11-17 07:31] LABS: ALBUMIN 2.7 g/dl (3.4-5.0)
[2021-11-17 07:33] LABS: CREATININE 1.3 mg/dL (0.55-1.3); PHOSPHOROUS 3.2 mg/dL (2.5-4.9)
[2021-11-17 07:35] LABS: BILIRUBIN,TOTAL 0.4 mg/dL (0.2-1); TOT PROT 5.4 g/dl (6.4-8.2)
[2021-11-17] MEDS ORDERED: DEXTROSE 5%-WATER - 50 ML IVPB ONE (08:49)
[2021-11-17] MEDS ORDERED: cefTRIAXone SODIUM 1 GM VIAL ONE (08:49)
[2021-11-17] MEDS: CEFTRIAXONE 1 GM in DEXTROSE 5%-WATER - 50 ML IVPB SCH (09:41)
[2021-11-17] MEDS: FINASTERIDE 5 MG TABLET (FP) PO SCH (18:36)
[2021-11-17] MEDS: ATORVASTATIN CA 40 MG TABLET (FP) PO SCH (22:27)
[2021-11-18] MEDS: LEVOTHYROXINE NA 125 MCG TABLET (FP) PO SCH (06:08)
[2021-11-18 08:54] LABS: BASO % 0.5 % (0-2.0); HEMATOCRIT 27.9 % (35.4-49); HEMOGLOBIN 9.4 GM/dL (11.7-16.9); LYMPH % 18.1 % (8-40); MCH 30.1 pg (25.7-33.7); MCHC 33.6 g/dl (32.0-35.9); MEAN CELL VOLUME 89.5 fl (80-96); MONO % 7.7 % (3.8-10.2); NEUT % 70.7 % (42.8-82.8); PLATELET COUNT 358 10^3/uL (134-434); RBC 3.12 M/mm3 (4.00-5.60); RDW 14.5 % (11.9-15.9); WHITE BLOOD COUNT 7.4 K/mm3 (4.0-10.0)
[2021-11-18 09:03] LABS: BLOOD UREA NITROGEN 17.4 mg/dL (7-18); CALCIUM 8.8 mg/dL (8.5-10.1)
[2021-11-18 09:06] LABS: CREATININE 1.3 mg/dL (0.55-1.3)
[2021-11-18 09:07] LABS: BILIRUBIN,TOTAL 0.3 mg/dL (0.2-1)
[2021-11-18 09:08] LABS: TOT PROT 5.8 g/dl (6.4-8.2)
[2021-11-18] MEDS ORDERED: DEXTROSE 5%-WATER - 50 ML IVPB ONE (10:36)
[2021-11-18] MEDS ORDERED: cefTRIAXone SODIUM 1 GM VIAL ONE (10:36)
[2021-11-18] MEDS: FINASTERIDE 5 MG TABLET (FP) PO SCH (10:43)
[2021-11-18] MEDS: CEFTRIAXONE 1 GM in DEXTROSE 5%-WATER - 50 ML IVPB SCH (10:43)
[2021-11-18] MEDS: TAMSULOSIN HCL 0.4 MG CAP PO SCH (10:43)
[2021-11-18 12:36] LABS: HEPATITIS B SURFACE AG MATERN NON-REACTIVE (NONREACTIVE)
[2021-11-18] MEDS: ATORVASTATIN CA 40 MG TABLET (FP) PO SCH (21:35)
[2021-11-19] MEDS: LEVOTHYROXINE NA 125 MCG TABLET (FP) PO SCH (05:58)
[2021-11-19 08:06] LABS: HEMATOCRIT 27.5 % (35.4-49); HEMOGLOBIN 9.3 GM/dL (11.7-16.9); MCH 30.5 pg (25.7-33.7); MEAN CELL VOLUME 89.7 fl (80-96); MEAN PLT VOLUME 6.5 fl (7.5-11.1); PLATELET COUNT 346 10^3/uL (134-434); RBC 3.07 M/mm3 (4.00-5.60); RDW 14.3 % (11.9-15.9); WHITE BLOOD COUNT 6.6 K/mm3 (4.0-10.0)
[2021-11-19 08:17] LABS: CALCIUM 8.3 mg/dL (8.5-10.1)
[2021-11-19 08:18] LABS: ALBUMIN 2.8 g/dl (3.4-5.0); BLOOD UREA NITROGEN 16.4 mg/dL (7-18)
[2021-11-19 08:21] LABS: CREATININE 1.3 mg/dL (0.55-1.3)
[2021-11-19 08:22] LABS: BILIRUBIN,TOTAL 0.6 mg/dL (0.2-1); TOT PROT 5.9 g/dl (6.4-8.2)
[2021-11-19] MEDS: TAMSULOSIN HCL 0.4 MG CAP PO SCH (08:49)
[2021-11-19 09:07] VITALS: BP 114/62; PULSE 90; TEMP 97.9
[2021-11-19] MEDS ORDERED: DEXTROSE 5%-WATER - 50 ML IVPB ONE (09:59)
[2021-11-19] MEDS ORDERED: cefTRIAXone SODIUM 1 GM VIAL ONE (09:59)
[2021-11-19] MEDS: CEFTRIAXONE 1 GM in DEXTROSE 5%-WATER - 50 ML IVPB SCH (10:03)
[2021-11-19] MEDS: FINASTERIDE 5 MG TABLET (FP) PO SCH (10:03)
== END 2021-11-19 13:29 | disposition home or self-care (01) | DRG 812 ==
LOC: JER 13:53 → JERBED 17:00 → INTOOBSV 17:00 → OBSVTOIN 17:00 → J4S 11-16 03:27
PROVIDERS: ADMIT Internal Medicine; ATTEND Internal Medicine
PROC: 30233N1 Transfusion of Nonautologous Red Blood Cells into Peripheral Vein, Percutaneous Approach (ICD-10-PCS; principal; 2021-11-15)
DX: D64.9 Anemia, unspecified (principal); N39.0 Urinary tract infection, site not specified; N17.9 Acute kidney failure, unspecified; E03.9 Hypothyroidism, unspecified; K21.9 Gastro-esophageal reflux disease without esophagitis; N40.0 Benign prostatic hyperplasia without lower urinary tract symptoms; Z79.84 Long term (current) use of oral hypoglycemic drugs; R31.9 Hematuria, unspecified; I12.9 Hypertensive chronic kidney disease with stage 1 through stage 4 chronic kidney disease, or unspecified chronic kidney disease; E11.22 Type 2 diabetes mellitus with diabetic chronic kidney disease; N18.9 Chronic kidney disease, unspecified; B96.89 Other specified bacterial agents as the cause of diseases classified elsewhere
CPT/HCPCS: 36415; 36430; 71045-TC-FY; 80048; 80053; 80061; 81003; 82272; 82570; 82728; 82962; 83540; 83550; 83735; 84100; 84155; 84156; 84165; 84300; 84484; 85025; 85027; 85045; 85610; 85730; 86038; 86160; 86850; 86900; 86901; 86922; 87086; 87186; 87340; 87517; 87902; 93005; 93010; 97116-GP; 97161-GP; 99285-25; C9803-CS; G0378; P9058; U0003; U0005